=== PATIENT | female | born 1970 | race Caucasian/White ===

== ENCOUNTER 2022-06-01 21:53 | Emergency (ER) | payer BC, SELFPAY ==
[2022-06-01] MEDS: 0.9 % SODIUM CHLORIDE 500 ML 500 ML 2000 ML IV (22:05)
[2022-06-01] MEDS: 0.9 % SODIUM CHLORIDE 500 ML 500 ML IV (22:05)
[2022-06-01 22:07] VITALS: BP 123/84; PULSE 103; RESP 16; TEMP 36.6; O2SAT 99; BMI 23.8
[2022-06-01] MEDS: 0.9 % SODIUM CHLORIDE 1000 ml 1,000 ML IV (22:10)
--- NOTE | 2022-06-01 22:14 | ED.GENADULT ---
HPI - General Adult General Chief complaint: Nausea/Vomiting Stated complaint: diarrhea, nausea, fever Time Seen by Provider: 06/01/22 21:59 History of Present Illness HPI narrative: Patient is a 52-year-old woman who presents with 2 day history of nausea with extreme diarrhea. She has no abdominal pain no fevers no chills no night sweats no weakness no blood in her stool or vomitus. She has otherwise been feeling fine has not traveled anywhere recently. She has had no similar symptoms previously. Related Data Home Medications Medication Instructions Recorded Confirmed calcium carbonate 600 mg calcium mg PO BID 05/06/22 05/11/22 (1,500 mg) tablet fexofenadine 180 mg tablet 180 mg PO QDAY 05/06/22 06/01/22 hydrocodone 5 mg-acetaminophen 325 tab PO PRN 05/06/22 mg tablet multivitamin (Multiple Vitamins 1 tab PO QDAY 05/06/22 06/01/22 tablet) valacyclovir 1 gram tablet mg PO BID 05/06/22 05/11/22 Previous Rx's Medication Instructions Recorded dextroamphetamine-amphetamine ER 20 mg PO DAILY #30 caps 05/06/22 20 mg 24hr capsule,extend release duloxetine 60 mg capsule,delayed 60 mg PO DAILY #90 caps 05/06/22 release epinephrine 0.3 mg/0.3 mL 0.3 mg (0.3 mL) IM ONCE PRN 05/06/22 injection, auto-injector anaphylaxis #2 ea Allergies Allergy/AdvReac Type Severity Reaction Status Date / Time nickel Allergy Severe Hives Verified 05/11/22 09:07 tetracycline Allergy Severe severe Verified 05/11/22 09:07 hives Sulfa drugs Allergy Severe severe Uncoded 05/11/22 09:07 hives Review of Systems Status of ROS: Reports: 10 or more systems reviewed and unremarkable except as noted in History and below [facility] Medical History Allergic rhinitis Allergic to bees Anxiety (12/04/10) Attention deficit disorder (2019) Celiac disease (2012) Chronic sinusitis Depressive disorder (06/27/07) Lymphocytic colitis (2016) Osteopenia (2012) Pneumonia (12/04/10) Thoracic back pain Surgical History History of loop electrical excision procedure (LEEP) (2017) History of varicose vein stripping (2014) Family History Mother Celiac disease Depression Sister Celiac disease Father Depression [place] (myocardial infarction) 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 History 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: , 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 EYES: No scleral icterus. LYMPH: No supraclavicular or cervical lymphadenopathy. SKIN: Visible skin seen during exam normal or with benign process only. EXT: No dependent lower extremity pedal edema. HEART: Regular rate and rhythm with no murmurs, rubs, or gallops. LUNGS: Clear to auscultation bilaterally with no crackles or wheezes. ABD: Soft, non tender, non distended. PSYCH: Good eye contact, speech is not pressured. Const: Vital Signs, click to edit/add: Vital Signs - 24 hr 06/01/22 22:07 06/01/22 22:39 Temperature 97.9 F 97.9 F Pulse Rate [Right Pulse Oximeter] 103 H Respiratory Rate 16 Blood Pressure [Ri ght Upper Arm] 123/84 Pulse Oximetry 99 Oxygen Delivery Me thod Room Air Course Course Hospital Course: Normal saline 2 L given 4 mg Zofran given IV CBC basic metabolic panel pending. Reevaluation(s) Reevaluation #1: Patient now feeling better after 2 L of normal saline. She has a feeling much better with Zofran on board as well. Time: 23:00 Vital Signs Vital signs: Initial Vital Signs Temperature 97.9 F 06/01/22 22:07 Temperature Source Temporal Artery Scan 06/01/22 22:07 Pulse Rate 103 H 06/01/22 22:07 Respiratory Rate 16 06/01/22 22:07 Blood Pressure 123/84 06/01/22 22:07 Blood Pressure Mean 97 06/01/22 22:07 Blood Pressure Position Supine 06/01/22 22:07 Pulse Oximetry 99 06/01/22 22:07 Oxygen Delivery Method 06/01/22 22:07 Vital Signs Temperature 97.9 F 06/01/22 22:07 Pulse Rate 103 H 06/01/22 22:07 Respiratory Rate 16 06/01/22 22:07 Blood Pressure 123/84 06/01/22 22:07 Pulse Oximetry 99 06/01/22 22:07 Oxygen Delivery Method 06/01/22 22:07 Temperature 97.9 F 06/01/22 22:39 Pulse Rate 103 H 06/01/22 22:07 Respiratory Rate 16 06/01/22 22:07 Blood Pressure 123/84 06/01/22 22:07 Pulse Oximetry 99 06/01/22 22:07 Oxygen Delivery Method 06/01/22 22:07 Medical Decision Making Lab Data Labs: Lab Results 06/01/22 06/01/22 Range/Units 22:10 22:10 WBC 7.77 (4.50-11.00) K/uL RBC 4.33 (4.00-5.20) m/uL Hgb 13.6 (12.0-16.0) gm/dL Hct 41.5 (33.0-51.0) % MCV 96 (80-100) fL MCH 31 (26-34) pg MCHC 33 (32-36) gm/dL RDW Coeff of Pardeep 12.5 (11.5-15.5) % Plt Count 261 (140-440) K/uL Neut % (Auto) 77.0 H (42.0-72.0) % Lymph % (Auto) 10.2 L (20-44) % [place] % (Auto) 9.9 (0.0-11.0) % Eos % (Auto) 1.3 (0.0-7.0) % Baso % (Auto) 0.4 (0.0-3.0) % Neut # (Auto) 6.00 (1.7-7.0) K/uL Lymph # (Auto) 0.80 L (0.90-2.90) K/uL [place] # (Auto) 0.80 (0.00-0.90) K/UL Eos # (Auto) 0.10 (0.00-0.50) K/uL Baso # (Auto) 0.03 (0.00-0.30) K/uL Abs Immat Gran (auto) 0.09 (0.00-0.30) K/uL Sodium 135 (135-149) mmol/L Potassium 3.5 L (3.6-5.1) mmol/L Chloride 103 (96-114) mmol/L Carbon Dioxide 26 (20-32) mmol/L BUN 13 (7-30) mg/dL Creatinine 0.8 (0.5-1.5) mg/dL Estimated Creat Clear 79.09 Estimated GFR 88 ml/min Glucose 94 (60-115) mg/dL Calcium 8.4 (8.4-10.6) mg/dL Discharge Plan Discharge Clinical Impression: Gastroenteritis Patient Disposition: Home, Self-Care Condition: Stable Instructions: Gastroenteritis (ED) Activity Level: No Restrictions Discharge Diet: Regular Prescriptions: No Action fexofenadine 180 mg tablet 180 mg PO QDAY multivitamin [Multiple Vitamins] Tablet 1 tab PO QDAY valacyclovir 1 gram tablet PO BID Rx Instructions: Take at onset on cold sore flare, 2 tabs po now and again 12 hrs later. calcium carbonate 600 mg calcium (1,500 mg) tablet PO BID hydrocodone-acetaminophen 5-325 mg tablet PO PRN Rx Instructions: minimize and discontinue as soon as possible duloxetine 60 mg capsule,delayed release(DR/EC) 60 mg PO DAILY Qty: 90 0RF dextroamphetamine-amphetamine 20 mg capsule,extended release 24hr 20 mg PO DAILY Qty: 30 0RF epinephrine 0.3 mg/0.3 mL auto-injector 0.3 mg IM ONCE PRN (Reason: anaphylaxis) Qty: 2 0RF Follow Up/Referrals: Jerri Moss MD [Primary Care Provider] - Stand Alone Forms: [employer] Info Instructions
[2022-06-01] MEDS: ONDANSETRON 2 MG/ML inj 4 MG IVP (22:16)
[2022-06-01 22:38] LABS: Basophils Absolute Auto 0.03 K/uL (0.00-0.30); Basophils Percent Auto 0.4 % (0.0-3.0); Eosinophils Percent Auto 1.3 % (0.0-7.0); Hematocrit 41.5 % (33.0-51.0); Hemoglobin* 13.6 gm/dL (12.0-16.0); Immature Granulocytes Abs Auto 0.09 K/uL (0.00-0.30); Lymphocytes Percent Auto 10.2 % (20-44); Mean Corpuscular HGB Conc 33 gm/dL (32-36); Mean Corpuscular Hemoglobin 31 pg (26-34); Mean Corpuscular Volume 96 fL (80-100); Monocytes Percent Auto 9.9 % (0.0-11.0); Platelet Count* 261 K/uL (140-440); RDW Coefficient of Variation % 12.5 % (11.5-15.5); Red Blood Count 4.33 m/uL (4.00-5.20); White Blood Count* 7.77 K/uL (4.50-11.00)
[2022-06-01 22:39] VITALS: TEMP 36.6
[2022-06-01 22:39] LABS: Chloride* 103 mmol/L (96-114); Sodium* 135 mmol/L (135-149)
[2022-06-01] MEDS: ACETAMINOPHEN 500 MG TABLET 1000 MG PO (22:39)
[2022-06-01 22:40] LABS: Potassium* 3.5 mmol/L (3.6-5.1)
[2022-06-01 22:42] LABS: Carbon Dioxide* 26 mmol/L (20-32); Creatinine* 0.8 mg/dL (0.5-1.5); Est. Creatinine Clearance* 79.09; Estimated Glomerular Filt Rate 88 ml/min
[2022-06-01 22:43] LABS: Blood Urea Nitrogen* 13 mg/dL (7-30); Calcium* 8.4 mg/dL (8.4-10.6); Glucose* 94 mg/dL (60-115)
[2022-06-01 22:47] LABS: Slide Review Reflex No
[2022-06-01 23:12] VITALS: BP 118/71; PULSE 61; RESP 16; TEMP 36.7
== END 2022-06-01 23:12 | disposition home or self-care (01) ==
PROVIDERS: Emergency Provider Internal Medicine; PCP Family Medicine
DX: K52.9 Noninfective gastroenteritis and colitis, unspecified (principal)
CPT/HCPCS: 36415; 80048; 85025; 96374; 99283; 99284; A9270; J2405; J7030; J7120

== ENCOUNTER 2022-06-26 10:45 | Outpatient (RCR) | payer BC, SELFPAY | END 2022-09-25 15:28 | disposition home or self-care (01) | PROVIDERS: PCP Family Medicine; Visit Provider Orthopaedic Surgery | DX: M25.571 Pain in right ankle and joints of right foot (principal); R26.9 Unspecified abnormalities of gait and mobility; Z51.89 Encounter for other specified aftercare | CPT/HCPCS: 97110; 97116; 97140 ==

== ENCOUNTER 2022-12-22 13:13 | Outpatient (CLI) | payer BC, SELFPAY ==
[2022-12-25 16:17] LABS: Follicle Stimulating Hormone 14.7 IU/L
== END 2022-12-22 13:14 | disposition home or self-care (01) ==
PROVIDERS: PCP Family Medicine; Visit Provider Physician Assistant
DX: Z01.419 Encounter for gynecological examination (general) (routine) without abnormal findings (principal); N95.1 Menopausal and female climacteric states
CPT/HCPCS: 83001; 84443

== ENCOUNTER 2022-12-29 15:51 | Outpatient (CLI) | payer BC, SELFPAY ==
--- NOTE | 2022-12-29 16:00 | CRLHL7_ITS ---
For Patients: As a result of the Century Cures Act, medical imaging exams and procedure reports are released immediately into your electronic medical record. You may view this report before your referring provider. If you have questions, please contact your health care provider. INDICATION: Dysfunctional uterine bleeding. Uterine fibroids. Follow-up. TECHNIQUE: Grayscale images were acquired of the pelvis using a transabdominal and transvaginal approach. COMPARISON: January 07, 2021. FINDINGS: Sonographic images demonstrate an enlarged and lobulated uterine contour compatible with diffuse and more focal fibroids. The uterus measures 9.7 x 4.5 x 4.3 cm previously measuring up to 8.5 cm. For measurement purposes: Large exophytic fibroid arises from the uterine fundus measuring 12.5 x 7.6 x 6.1 cm previously 6.5 x 5.0 x 7.4 cm. Smaller left lateral sub serosal uterine fibroid measuring 3.5 x 2.6 x 2.4 cm previously measuring 1.2 x 1.2 x 1.3 cm. There is an intrauterine device which appears to be within the endometrial canal. The endometrial stripe is poorly visualized. The right ovary measures 2.7 x 1.5 x 1.9 cm. The left ovary measures 2.2 x 1.3 x 2 cm. Blood flow is identified in the ovaries. Doppler evaluation was not performed. No free pelvic fluid. IMPRESSION: 1. Enlarged myomatous uterus with at least 2 enlarging uterine fibroids as described above. 2. IUD appears to be within the endometrial canal. Poor visualization of the endometrial lining. 3. The ovaries are within normal limits. Dictated by Tripp Agosto MD @ 12/29/2022 6:20:05 PM (Electronically Signed)
== END 2022-12-29 15:52 | disposition home or self-care (01) ==
LOC: US 15:52
PROVIDERS: PCP Family Medicine; Visit Provider Physician Assistant
DX: N92.1 Excessive and frequent menstruation with irregular cycle (principal); D25.9 Leiomyoma of uterus, unspecified; N85.2 Hypertrophy of uterus
CPT/HCPCS: 76830; 76856

== ENCOUNTER 2023-05-26 08:10 | Outpatient (CLI) | payer BC, SELFPAY ==
--- OUTSIDE RECORDS SUMMARY | 2023-05-26 13:19 | XMS_ITS | Continuity of Care Document ---
Author Name Unknown Organization [facility] Address [address] [place] [address] Phone Care Team Providers Care Parking Enforcement Specialist Name Role Phone Stepan Mckeon MD Unavailable Unavailable Allergies, Adverse Reactions, Alerts Substance Reaction Status Criticality tetracycline hives Active No Information Sulfa (Sulfonamide Antibiotics) hives Active No Information nickel rash Active No Information Medications Medication Instructions Dosage Effective Dates (start - stop) Status Comments TIZANIDINE HCL (unknown strength) Not Available - Active CYMBALTA (unknown strength) Not Available - Active VALTREX (unknown strength) Not Available - Active Procedures Procedure Date Office/Outpatient Visit,Est, Mod 2020 Office/Outpatient Visit,New, Mod 2020 X Ray Exam Entire SPI / VW Office consultation, moderate X-ray exam of total spine Advance Directives Directive Yes / No Effective Date File Name No Information Encounters Encounter Description Practice Location Reason(s) For Visit Diagnoses Date Provider Providers Copied on Encounter Office/Outpa tient Visit,Est, Mod [facility], [address], [place], [place], [id number], [place] tel:[phone] [facility] Other spondylosis, thoracic region Linda Ying. [facility], [address], [address], [place], [place], [id number], [place]. tel:[phone] Referring Provider: Yakov King, [facility] [address], [place], [address] . tel:[phone] Office/Outpa tient Visit,New, Mod [facility], [address], [place], [place], [id number], [place] tel:[phone] [facility] Other kyphosis, thoracic regionAdolescen t idiopathic scoliosis, site unspecified Christine Nagy. [facility], [address], [place], [place], [id number], [place]. tel:[phone] Referring Provider: Yakov King, [facility] [address] [place] [address] [address], [place], [address] . tel:[phone] Office consultation , moderate Z [facility], [address], [place], [address], [place] tel:[phone] [facility] No Information No Information Referring Provider: Romy Gordillo, [facility] [address] [place], [place]. tel:[phone] Family History Family Member Type Diagnosis Age At Onset No Information Payers Payer name Insurance type Covered constitution party ID Orville gerber(alfredito) [facility] [id number] [facility] [id number] Social History Type Description Quantity Date Captured Comments Alcohol Use Details Unknown Caffeine Use Details Unknown Tobacco Use Status No Information Smoking Status No Information Sex Female Vital Signs Date / Time: Height Weight BMI Pulse Rate Blood Pressure Temperature Respiratory Rate Body Surface Area Head Circumference Head Circ. Percentile Wt./Emmett. Percentile BMI percentile Pulse Ox Inhaled Ox 3:02 PM 66.50 in 73.936 kg (163.00 lbs) 25.9 1 kg/m eter (2) Chief Complaint And Reason For Visit No Information Reason For Referral Reason For Referral No Information Plan Of Treatment Date Type Action Status Future Order: Radiology Order PA /Lateral Full Spine (PALatFS), Ordered on: Ordered Future Order: Radiology Order F/ E Lumbar (F/ELumb), Ordered on: Ordered History Of Present Illness Encounter Date Complaint History Of Prese nt Illness No Information Functional Status Date Functional Assessmen t No Information Instructions Date Instruction Additional Infor mation No Information Assessments Type Assessment Date No Information Patient Care Teams Name Effective Dates (start - stop) Status Members No Information
== END 2023-05-26 08:11 | disposition home or self-care (01) ==
LOC: NFLDREF 13:16
PROVIDERS: PCP Family Medicine; Referring Provider Family Medicine; Visit Provider Family Medicine
DX: Z01.419 Encounter for gynecological examination (general) (routine) without abnormal findings (principal); E78.5 Hyperlipidemia, unspecified; M85.80 Other specified disorders of bone density and structure, unspecified site; K90.0 Celiac disease
CPT/HCPCS: 80053; 80061; 82306

== ENCOUNTER 2024-06-05 13:12 | Outpatient (CLI) | payer BC, SELFPAY ==
--- OUTSIDE RECORDS SUMMARY | 2024-06-05 13:17 | XMS_ITS | Referral Summary ---
Author Organization [facility] Address [address] [place] [address]. [place] [address] Care Team Providers Care Biomedical Analytical Scientist Name Role Phone Xenia Clements PA-C Primary Care Provider [phone] Jerri Moss MD Unavailable Allergies Active Allergy Reactions Criticality Noted Date Comments Sulfa Antibiotics 02/29/2004 Tetracycline 02/29/2004 Medications Medication Sig Dispensed Refills Start Date End Date Status MULTIVITAMIN TABS OR 1 tab daily 0 06/09/2005 Act nash VICODIN 5-500 MG OR TABSIndications:Back ache, unspecified 1 TABLET EVERY 4 TO 6 HOURS NEEDED 20 0 07/03/2005 Active ALBUTEROL SULFATE 0.083 % IN NEBUIndications:Acut e pharyngitis given in clinic 1 0 10/06/2005 Active NYSTATIN (MOUTH-THROAT) SUSP 806849 U/ML MTIndications:Candid iasis of vulva and vagina 1 TEASPOONFUL 4 TIMES DAILY garle and spit 280 0 10/06/2005 Active LEVAQUIN 500 MG OR TABSIndications:Coug h 1 TABLET DAILY 10 0 10/06/2005 Active XANAX 0.25 MG OR TABS 1 tab po qhs prn 10 0 10/06/2005 Active ZOLOFT 100 MG OR TABSIndications:Depr essive disorder, not elsewhere classified ONE AND ONE HALF TAB DAILY 45 3 03/14/2007 Active fluticasone (FLONASE) 50 MCG/ACT nasal spray 10 01/18/2019 Active EPINEPHrine (EPIPEN/ADRENACLICK/ OR ANY BX GENERIC EQUIV) 0.3 MG/0.3ML injection 2-pack Once 12/20/2018 Active DULoxetine (CYMBALTA) 60 MG capsule Take 60 mg by mouth daily Active Immunizations Name Administration Dates Next Due Influenza (IIV3) PF 10/04/2003 Social History Tobacco Use Types Packs/Day Years Used Date Smoking Tobacco: Never Smokeless Tobacco: Never Alcohol Use Standard Drinks/Week Comments Yes 0 (1 standard drink = 0.6 oz pur e alcohol) PHQ-2 Answer Date Recorded PHQ-2 Score 4 01/19/2019 Adolescent Education Answer Date Record ed Getting School Help Needed Not on file 08/17 Sex and Gender Information Value Date Recorded Sex Assigned at Not on file Gender Identity Not on file Sexual Orientation Not on file Last Filed Vital Signs Vital Sign Reading Time Taken Comments Blood Pressure 119/80 06/29/2019 4:18 PM CDT Pulse 94 06/29/2019 4:18 PM CDT Temperature 36.4 ??C (97.5 ??F) 01/19/2019 12:22 PM C DT Respiratory Rate 16 06/29/2019 4:18 PM CDT Oxygen Saturation 96% 06/29/2019 4:18 PM CDT Inhaled Oxygen Concentration - - Weight 70.3 kg (155 lb) 01/19/2019 12:22 PM CDT Height 171.8 cm (5' 7.64) 01/19/2019 12:22 PM C DT Body Mass Index 23.82 01/19/2019 12:22 PM CDT Plan of Treatment Not on file Advance Directives For more information, please contact: [phone] * No Code Status (Latest Code Status on File) Date Activated Date Inactivated Comments 10/04/2003 9:28 AM 10/04/2003 10:28 AM Care Teams Biomedical Analytical Scientist Relationship Specialty Start Date End Date Xenia Clements PA-C [facility] [address] [address] PCP - General 05/13/[address] [facility] [address] [place] [address] Family Practice 12/20/18
--- OUTSIDE RECORDS SUMMARY | 2024-06-05 13:17 | XMS_ITS | Clinical Summary ---
Author Organization [facility] Address [address] [place] [address] Care Team Providers Care Can Capper Name Role Phone Unassigned, Provider Primary Care Provider Unava ilable Source Comments You are receiving this document as you are listed as the primary care provider,follow-up provider, or the patient has been referred to you for consultation.This is in compliance with the Medicare andMedicaid EHR Incentive Program,which states Providers who transition their patient to another setting of careor provider of care or refers their patient to another provider of care shouldprovide summary care record for each transition of care or referral. [facility] All[facility] Active Allergy Reactions Criticality Noted Date Comments Sulfonamide Derivatives 11/15/2001 Tetracyclines & Related 11/15/2001 Medications Medication Sig Dispensed Refills Start Date End Date Status amphetamine-dextroamph etamine XR (ADDERALL XR) 20 MG 24 hour release capsule Take 20 mg by mouth daily. 03/03/2022 Active DULoxetine (CYMBALTA) 60 MG capsule Take 120 mg by mouth daily. 02/24/2022 Active HYDROcodone-acetaminop hen (NORCO) 5-325 MG tabletIndications:Clos ed nondisplaced spiral fracture of shaft of right fibula with routine healing, subsequent encounter,Acute right ankle pain Take 1-2 Tablets by mouth two times daily as needed for Pain. 15 Tablet 03/21/2022 Active Immunizations Name Administration Dates Next Due Flu Vac (3+ yrs) 09/01/2001 Varicella 09/19/2001(Deferred: Immune by Marta butt) Social History Tobacco Use Types Packs/Day Years Used Date Smoking Tobacco: Never Assessed Sex and Gender Information Value Date Recorded Sex Assigned at Not on file Gender Identity Not on file Sexual Orientation Not on file Last Filed Vital Signs Vital Sign Reading Time Taken Comments Blood Pressure - - Pulse - - Temperature 36.7 ??C (98 ??F) 03/21/2022 3:20 PM CDT Respiratory Rate - - Oxygen Saturation - - Inhaled Oxygen Concentration - - Weight 70.3 kg (155 lb) 03/15/2022 2:38 PM CDT Height 170.2 cm (5' 7) 03/15/2022 2:38 PM CDT Body Mass Index 24.28 03/15/2022 2:38 PM CDT Plan of Treatment Health Maintenance Due Date Last Done Comments Colon Cancer Screening Plan Due 1969 Hep C Screening (Preventive Services) 1969 Mammogram 1969 HIV Screening (Preventive Services) 1985 HepB (1) 1988 Cervical Cancer Screening Due 09/02/2001 09/01/2001, 09/01/2001 Adult Preventive Visit 09/01/2002 09/01/2001 Cholesterol 2014 09/01/2001 Zoster/Shingles (1 of 2) 2019 COVID-19 Vaccine ( season) 2023 09/22/2021, 01/30/2021, 01/02/2021 Influenza (#1) 2024 10/13/2021, 01/31, 08/10/2018, Additional history exists DTaP/Tdap/Td (2 - Tdap) 05/03/2027 05/03/2017 Pneumococcal Aged Out 10/13/2021, 02/14/2020 No lo nger eligible based on patient's age to complete this topic HepA Aged Out No longer eligi ble based on patient's age to complete this topic Hib Aged Out No longer eligi ble based on patient's age to complete this topic IPV (Polio) Aged Out No longer eligi ble based on patient's age to complete this topic MCV4 Aged Out No longer eligi ble based on patient's age to complete this topic Procedures Procedure Name Priority Date/Time Associated Diagnosis Comments CHOLESTEROL, TOTAL AND HDL Routine 09/01/2001 1:25 PM UTILITY DRIVER PAP TEST, ROUTINE Routine 09/01/2001 10: 10 AM UTILITY DRIVER from Last 3 Months or Most Recently Relevant to Health Maintenance Results * CHOLESTEROL, TOTAL AND HDL (09/01/2001 1:25 PM UTILITY DRIVER) Cholesterol 148 <200 mg/dl [facility] HDL 58 >35 mg/dl [facility] 09/01/2001 1:25 PM UTILITY DRIVER 09/01/2001 1:26 PM UTILITY DRIVER Rosa Harrison MD LAB_1 Performing Organization Address [facility] de Phone Number [facility] [address] [phone] * PAP SMEAR, ROUTINE (09/01/2001 10:10 AM UTILITY DRIVER) Pap Smear, Routine See Separate Report Performed at [facility] 09/01/2001 10:1 0 AM UTILITY DRIVER 09/07/2001 10:53 AM UTILITY DRIVER Rosa Harrison MD LAB_1 Performing Organization Address [facility] de Phone Number [facility] [address] [phone] from Last 3 Months or Most Recently Relevant to Health Maintenance Care Teams Can Capper Relationship Specialty Start Date End Date Unassigned, Provider [address] [place] [address] PCP - General 08/22/04
--- OUTSIDE RECORDS SUMMARY | 2024-06-05 13:17 | XMS_ITS | Encounter Summary ---
Author Organization [facility] Address [address] [place] [address]. [place] [address] Care Team Providers Care [employer] Principal Name Role Phone Xenia Clements PA-C Primary Care Provider [phone] Jerri Moss MD Unavailable [phone] Alcon Gallegos MD Unavailable [phone] Reason for Visit * Reason Onset Date Comments Orders 06/12/2019 MRI order Encounter Details Date Type Department Care Team ([facility] st Contact Info) Description 06/12/[address] [place] [address] Fely Luque MD [id number] [place] [address] Orders (MRI order) Social History Tobacco Use Types Packs/Day Years Used Date Smoking Tobacco: Never Smokeless Tobacco: Never Alcohol Use Standard Drinks/Week Comments Yes 0 (1 standard drink = 0.6 oz pur e alcohol) PHQ-2 Answer Date Recorded PHQ-2 Score 4 01/19/2019 Sex and Gender Information Value Date Recorded Sex Assigned at Not on file Gender Identity Not on file Sexual Orientation Not on file documented as of this encounter Miscellaneous Notes * Telephone Encounter - Caren Joshua - 06/12/2019 4:05 PM CDT [facility] MRI order faxed to [facility] at [phone] Karen Collins CMA Phone Message May a detailed message be left on voicemail: yes Reason for Call: Other: Susy calling to request that the MRI order be sent to [facility] in [place] as we are not in network per her insurance. Their fax number is [phone]. Please call her once the order has been faxed so she can schedule her appointment Action Taken: Message routed to: [facility] Neurology documented in this encounter Plan of Treatment Not on file documented as of this encounter Visit Diagnoses Not on filedocumented in this encounter Additional Health Concerns Assessment Noted Time PHQ-9 Depression Total Score: 6 06/05/20 24 7:55 AM CDT documented as of this encounter Care Teams [employer] Principal Relationship Specialty Start Date End Date Xenia Clements PA-C [facility] [address] [address] PCP - General 05/13/02 Jerri Moss MD [facility] [address] [place] [address] Family Practice 12/20/18 Alcon Gallegos MD [address] [place] [address] [address] [place] [address] Neurology 12/20/18 02/21/20 documented as of this encounter
--- OUTSIDE RECORDS SUMMARY | 2024-06-05 13:17 | XMS_ITS | Clinical Summary ---
Author Organization [facility] Address [place], [place] [address] Care Team Providers Care Motor Vehicle Inspector Name Role Phone None, Primary Care Provider Unavailemmett e Allergies Active Allergy Reactions Criticality Noted Date Comments Nickel Rash 03/29/2019 Sulfa (Sulfonamide Antibiotics) Hives 02/01 Tetracycline Hives 02/16/2007 Medications Medication Sig Dispensed Refills Start Date End Date Status DULoxetine (CYMBALTA) 60 mg Delayed-release capsule Take 1 capsule by mouth 2 times daily. 0 02/19/2018 Active valACYclovir (VALTREX) 1 gram tablet Take 1 tablet by mouth 3 times daily. 0 02/19/2018 Active Adderall XR 20 mg Extended-Release capsule TAKE ONE CAPSULE BY MOUTH EVERY DAY NEEDED 05/07/2021 Active EPINEPHrine (EPIPEN) 0.3 mg/0.3 mL injection INJECT 0.3 MG INTRAMUSCULARLY ONCE 01/21/2021 Active fluticasone (50 mcg per actuation) nasal solution (FLONASE) INSTILL 2 SPRAYS INTO EACH NOSTRIL DAILY 01/21/2021 Active ondansetron (ZOFRAN ODT) 4 mg disintegrating tablet 06/01/2022 Active tiZANidine (ZANAFLEX) 4 mg tabletIndications:A rthropathy of thoracic facet joint Take 1 Tablet (4 mg) by mouth every 6 hours if needed for Muscle Spasm. 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 Family History Medical History Relation Name Comments Heart Disease Father Other Father scoliosis No Known Problems Mother Relation Name Status Comments Father Mother Alive Social History Tobacco Use Types Packs/Day Years Used Date Smoking Tobacco: Never Smokeless Tobacco: Never Tobacco Cessation:Counseling Given: Yes Alcohol Use Standard Drinks/Week Comments Yes 2 (1 standard drink = 0.6 oz pur e alcohol) Social Connections Answer Date Recorded Frequency of Communication with Friends and Fami ly Not on file 10/22/2021 Financial Resource Strain Answer Date R ecorded Difficulty of Paying Living Expenses Not on file 10/22/2021 Difficulty of Paying Living Expenses Not on file 10/22/2021 Sex and Gender Information Value Date Recorded Sex Assigned at Not on file Gender Identity Not on file Sexual Orientation Not on file Obstetrics History Last Filed Vital Signs Vital Sign Reading Time Taken Comments Blood Pressure 112/78 01/10/2024 7:47 AM CDT Pulse 90 01/10/2024 7:47 AM CDT Temperature 36.3 ??C (97.4 ??F) 01/10/2024 7:47 AM CD T Respiratory Rate - - Oxygen Saturation 97% 01/10/2024 7:47 AM CDT Inhaled Oxygen Concentration - - Weight 68.7 kg (151 lb 6.4 oz) 06/29/2022 9:14 A M CDT Height 170.2 cm (5' 7) 10/21/2021 2:17 PM BURR BENCH HAND Body Mass Index 23.71 10/21/2021 2:17 PM BURR BENCH HAND Plan of Treatment Health Maintenance Due Date Last Done Comments Tdap 1980 Depression screening for age 12+ 1981 HIV for age 15-65 1984 Hepatitis C screening for age 18-79 1987 Tetanus booster 1989 Colonoscopy through age 75 2014 Lipids for age 45-75 2014 Mammogram for age 45-75 2014 Zoster (shingles) series for age 50+ (1 of 2) 2019 BMI (ht and wt on same day) for age 18+ 10/21/2022 10/21/2021, 09/08/2021, 08/29/2021, Additional history exists COVID-19 vaccine series (2022- season) 2023 07/23/2022, 09/22/2021, 01/30/2021, Additional history exists Influenza for age 50-64 07/02/2024 Pap test for age 21-65 12/22/2025 3, 12/22/2022, 12/06/2020, Additional history exists Pneumococcal series for age 6-64 Aged Out No longer eligible based on patient's age to complete this topic Procedures Procedure Name Priority Date/Time Associated Diagnosis Comments HPV THIN PREP Routine 12/22/2022 12:00 PM BURR BENCH HAND from Last 3 Months or Most Recently Relevant to Health Maintenance Results * HPV HIGH RISK (12/22/2022 12:00 PM B[facility]R BENCH HAND) TYPE 16 Negative Negative 12/30/2022 11:02 AM B[facility]R BEN[facility] HAND [facility] TYPE 18 Negative Negative 12/30/2022 11:02 AM B[facility]R BENCH HAND [facility] OTHER HIGH RISK TYPES Negative Negative 12/30/2022 11:02 AM BURR BENCH HAND [facility] Other (Cervical) 12/22/2022 12:00 PM B[facility]R BENCH HAND 12/23/2022 5:20 PM B[facility]R BENCH HAND Narrative [facility] - 12/30/2022 11:02 AM B[facility]R [facility] HPV types 16, 18, 31, 33, 35, 39, 45, 51, 52, 56, 58, 59, 66 and 68 DNA were undetectable or below the pre-set threshold. Methodology: Hue Gilbert 4800 HPV Test January Eugenia PACHECO MICROBI[employer] [facility] [address] [place] [address], from Last 3 Months or Most Recently Relevant to Health Maintenance Care Teams Motor Vehicle Inspector Relationship Specialty Start Date End Date None, Dr Quezada PCP - General 10/26/06
--- OUTSIDE RECORDS SUMMARY | 2024-06-05 13:17 | XMS_ITS | Clinical Summary ---
Author Organization [place] Address [address] [place] [address]. [place] [address] Care Team Providers Care Supplier Quality Specialist Name Role Phone Xenia Clements PA-C Primary Care Provider [phone]- [phone] Jerri Moss MD Unavailable [phone] Allergies Active Allergy Reactions Criticality Noted Date [...] 1 0 10/06/2005 Active NYSTATIN (MOUTH-THROAT) SUSP 316215 U/ML MTIndications:Candid iasis of vulva and vagina [...] Dates Next Due Influenza (IIV3) PF 10/04/2003 Family History Medical History Relation Comments Alcohol/Drug Father Depression Father Psychotic Disorder Father Arthritis Mother Osteoporosis Mother Alcohol/Drug Paternal Grandfather Alzheimer Disease Paternal Grandmother Depression Paternal Grandmother Diabetes Paternal Grandmother Hypertension Paternal Grandmother Relation Status Comments Father Mother Paternal Grandfather Paternal Grandmother Social History Tobacco Use Types Packs/Day Years [...] Advance Directives For more information, please contact: [phone] * No Code Status (Latest Code Status on File) Date Activated Date Inactivated Comments 10/04/2003 9:28 AM 10/04/2003 10:28 AM Care Teams Supplier Quality Specialist Relationship Specialty Start Date End Date Xenia Clements PA-C [facility] [address] [address] PCP - General 05/13/[address] [facility] [address] [place] [address] Family Practice 12/20/18
--- OUTSIDE RECORDS SUMMARY | 2024-06-05 13:17 | XMS_ITS | Encounter Summary ---
Author Organization [place] Address [address] [place] [address]. [place] [address] Care Team Providers Care Surgeon Assistant Name Role Phone Xenia Clements PA-C Primary Care Provider [phone]- [phone] Jerri Moss MD Unavailable [phone] Alcon Gallegos MD Unavailable [phone] Encounter Details Date Type Department Care Team (Late st Contact Info) Description 06/17/2019 [facility] Medical Advice [facility] Neurology [address] [place] [address] [address] [place] [address] Fely Luque MD [id number] [place] [address] Social History Tobacco Use Types Packs/Day Years [...] on file documented as of this encounter Plan of Treatment Not on file documented as of this encounter Visit Diagnoses Not on filedocumented in this encounter Additional Health Concerns Assessment Noted Time PHQ-9 Depression Total Score: 6 06/05/20 24 7:55 AM CDT documented as of this encounter Care Teams Surgeon Assistant Relationship Specialty Start Date End Date Xenia Clements PA-C [facility] [address] [facility] [address] [place] [address] PCP - General 05/13/02 Jerri Moss MD [facility] [address] [place] [address] Family Practice 12/20/18 Alcon Gallegos MD [address] [place] [address] [address] [place], [place] [address] Neurology 12/20/18 02/21/20 documented as of this encounter
== END 2024-06-05 13:13 | disposition home or self-care (01) ==
LOC: LKVREF 13:14
PROVIDERS: PCP Family Medicine; Visit Provider Physician Assistant
DX: N93.9 Abnormal uterine and vaginal bleeding, unspecified (principal); Z79.890 Hormone replacement therapy
CPT/HCPCS: 83001

== ENCOUNTER 2024-06-07 15:51 | Outpatient (CLI) | payer BC, SELFPAY ==
--- OUTSIDE RECORDS SUMMARY | 2024-06-07 15:54 | XMS_ITS | Clinical Summary ---
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 Encounters Date Type Department Care Team Description 06/06/2024 Lab Requisition [facility] [phone] Martha Bello PA-C 06/06/2024 Lab Requisition [facility] [phone] Martha Bello PA-C from Last 3 Months Family History Medical History Relation Name Comments [...] 170.2 cm (5' 7) 10/21/2021 2:17 PM MANAGER GAMING Body Mass Index 23.71 10/21/2021 2:17 PM MANAGER GAMING Plan of Treatment Health Maintenance Due Date [...] 08/29/2021, Additional history exists COVID-19 vaccine series (2022-24 season) 2023 07/23/2022, 09/22/2021, 01/30/2021, Additional history exists Influenza for age 50-64 07/02/2024 Pap test for age 21-65 12/22/2025 3, 12/22/2022, 12/06/2020, Additional history exists Pneumococcal series for age 6-64 Aged Out No longer eligible based on patient's age to complete this topic Procedures Procedure Name Priority Date/Time Associated Diagnosis Comments HPV THIN PREP Routine 12/22/2022 12:00 PM MANAGER GAMING from Last 3 Months or Most Recently Relevant to Health Maintenance Results * HPV HIGH RISK (12/22/2022 12:00 PM MANAGER GAMING) TYPE 16 Negative Negative 12/30/2022 11:02 AM MANAGER GAMING [facility] TYPE 18 Negative Negative 12/30/2022 11:02 AM MANAGER GAMING [facility] OTHER HIGH RISK TYPES Negative Negative 12/30/2022 11:02 AM MANAGER GAMING [facility] Other (Cervical) 12/22/2022 12:00 PM MANAGER GAMING 12/23/2022 5:20 PM MANAGER GAMING Narrative [facility] - 12/30/2022 11:02 AM MANAGER GAMING HPV types 16, 18, 31, 33, 35, 39, 45, 51, 52, 56, 58, 59, 66 and 68 DNA were undetectable or below the pre-set threshold. Methodology: Hue Gilbert 4800 HPV Test January Eugenia [facility] [address] [place] [address], [place] from Last 3 Months or Most Recently Relevant to Health Maintenance Care Teams Advertising Clerk Relationship Specialty Start Date End Date None, Dr Quezada PCP - General 10/26/06
--- OUTSIDE RECORDS SUMMARY | 2024-06-07 15:55 | XMS_ITS | Clinical Summary ---
Author Organization [place] Address [address] [place] [address]. [place] [address] Care Team Providers Care Associate Professor Of Library Media Name Role Phone Xenia Clements PA-C Primary Care Provider [phone]- [phone] Jerri Moss MD Unavailable [phone] Allergies Active Allergy Reactions Criticality Noted Date [...] 1 0 10/06/2005 Active NYSTATIN (MOUTH-THROAT) SUSP 891328 U/ML MTIndications:Candid iasis of vulva and vagina [...] Advance Directives For more information, please contact: [phone] * No Code Status (Latest Code Status on File) Date Activated Date Inactivated Comments 10/04/2003 9:28 AM 10/04/2003 10:28 AM Care Teams Associate Professor Of Library Media Relationship Specialty Start Date End Date Xenia Clements PA-C [facility] [address] [address] PCP - General 05/13/02 Jerri Moss MD [facility] [address] [place] [address] Family Practice 12/20/18
--- OUTSIDE RECORDS SUMMARY | 2024-06-07 15:55 | XMS_ITS | Encounter Summary ---
Author Organization [place] Address [address] [place] [address]. [place] [address] Care Team Providers Care Refuse Collector Supervisor Name Role Phone Xenia Clements PA-C Primary Care Provider [phone]- [phone] Jerri Moss MD Unavailable [phone] Alcon Gallegos MD Unavailable [phone] Reason for Visit * Reason Onset Date Comments Orders 06/12/2019 MRI order Encounter Details Date Type Department Care Team ([facility] st Contact Info) Description 06/12/[address] [place] [address] Fely Luque MD [id number] [place] [address] Orders (MRI order) Social History [...] Caren Joshua - 06/12/2019 4:05 PM CDT [facility] MRI order faxed to [facility] at [phone] Karen Collins CMA Phone Message May a detailed message be left on voicemail: yes Reason for Call: Other: Susy calling to request that the MRI order be sent to [facility] in [place] as we are not in network per her insurance. Their fax number is [phone]. Please call her once the order has been faxed so she can schedule her appointment Action Taken: Message routed to: [facility] Neurology documented in this encounter Plan of Treatment Not on file documented as of this encounter Visit Diagnoses Not on filedocumented in this encounter Additional Health Concerns Assessment Noted Time PHQ-9 Depression Total Score: 6 06/07/20 24 7:51 AM CDT documented as of this encounter Care Teams Refuse Collector Supervisor Relationship Specialty Start Date End Date Xenia Clements PA-C [facility] [address] [address] PCP - General 05/13/02 Jerri Moss MD [facility] [address] [place] [address] Family Practice 12/20/18 Alcon Gallegos MD [address] [place] [address] [address] [place] [address] Neurology 12/20/18 02/21/20 documented as of this encounter
--- OUTSIDE RECORDS SUMMARY | 2024-06-07 15:55 | XMS_ITS | Referral Summary ---
Author Organization [place] Address [address] [place] [address]. [place] [address] Care Team Providers Care Rn Gyn Name Role Phone Xenia Clements PA-C Primary Care Provider [phone]- [phone] Jerri Moss MD Unavailable [phone] Allergies Active Allergy Reactions Criticality Noted Date [...] 1 0 10/06/2005 Active NYSTATIN (MOUTH-THROAT) SUSP 068141 U/ML MTIndications:Candid iasis of vulva and vagina [...] Advance Directives For more information, please contact: [phone] * No Code Status (Latest Code Status on File) Date Activated Date Inactivated Comments 10/04/2003 9:28 AM 10/04/2003 10:28 AM Care Teams Rn Gyn Relationship Specialty Start Date End Date eXnia Clements PA-C [facility] [address] [address] PCP - General 05/13/02 Jerri Moss MD [facility] [address] [place] [address] Family Practice 12/20/18
--- OUTSIDE RECORDS SUMMARY | 2024-06-07 15:55 | XMS_ITS | Clinical Summary ---
Author Organization [facility] Address [address] [place] [address] Care Team Providers Care Automation Engineer Name Role Phone Unassigned, Provider Primary Care [...] for each transition of care or referral. [facility] Allergies Active Allergy Reactions Criticality Noted Date [...] TOTAL AND HDL Routine 09/01/2001 1:25 PM OUTSIDE SALESMAN PAP TEST, ROUTINE Routine 09/01/2001 10: 10 AM OUTSIDE SALESMAN from Last 3 Months or Most Recently Relevant to Health Maintenance Results * CHOLESTEROL, TOTAL AND HDL (09/01/2001 1:25 PM OUTSIDE SALESMAN) Cholesterol 148 <200 mg/dl [facility] HDL 58 >35 mg/dl [facility] 09/01/2001 1:25 PM OUTSIDE SALESMAN 09/01/2001 1:26 PM OUTSIDE SALESMAN Rosa Harrison MD LAB_1 Performing Organization Address [facility] de Phone Number [facility] [address] [phone] * PAP SMEAR, ROUTINE (09/01/2001 10:10 AM OUTSIDE SALESMAN) Pap Smear, Routine See Separate Report Performed at [facility] 09/01/2001 10:1 0 AM OUTSIDE SALESMAN 09/07/2001 10:53 AM OUTSIDE SALESMAN Rosa Harrison MD LAB_1 Performing Organization Address [facility] de Phone Number [facility] [address] [address] from Last 3 Months or Most Recently Relevant to Health Maintenance Care Teams Automation Engineer Relationship Specialty Start Date End Date Unassigned, Provider [address] [place] [address] PCP - General 08/22/04
--- OUTSIDE RECORDS SUMMARY | 2024-06-07 15:55 | XMS_ITS | Encounter Summary ---
Author Organization [place] Address [address] [place] [address]. [place] [address] Care Team Providers Care Senior Animator Name Role Phone Xenia Clements PA-C Primary Care Provider [phone]- [phone] Jerri Moss MD Unavailable [phone] Alcon Gallegos MD Unavailable [phone] Encounter Details Date Type Department Care Team (Late st Contact Info) Description 06/17/2019 [facility] Medical Advice [facility] Neurology [address] [place] [address] [address] [place] [address] Fely Luque MD [address] [place] [address] Social History Tobacco Use Types [...] documented as of this encounter Care Teams Senior Animator Relationship Specialty Start Date End Date Xenia Clements PA-C [facility] [address] [facility] [address] [place] [address] PCP - General 05/13/02 Jerri Moss MD [facility] [address] [place] [address] Family Practice 12/20/18 Alcon Gallegos MD [address] [place] [address] [address] [place], [place] [address] Neurology 12/20/18 02/21/20 documented as of this encounter
--- NOTE | 2024-06-07 16:00 | CRLHL7_ITS ---
For Patients: As a result of the Century Cures Act, medical imaging exams and procedure reports are released immediately into your electronic medical record. You may view this report before your referring provider. If you have questions, please contact your health care provider. INDICATION: Leiomyoma COMPARISON: 12/29/2022 TECHNIQUE: 2D leroy scale and color Doppler images were acquired of the pelvis using a transabdominal and transvaginal approach. FINDINGS: Large exophytic fundal fibroid measures 11.2 x 6.4 x 10.4 cm, previously measuring 12.5 x 7.6 x 6.1 cm. Anterior lower uterine fibroid on the left measures 3.5 x 2.4 x 3.1 cm, previously measuring 3.5 x 2.6 x 2.4 cm. Uterus measures 8.3 cm in length by 4.1 cm in AP diameter by 4.2 cm in transverse dimension. Endometrium measures 3.6 millimeters. IUD is present within the mid/upper endometrial canal. The right ovary is not visualized and the left ovary measures 3.1 x 1.4 x 2.1 cm. The left ovary demonstrates normal arterial and venous blood flow on color Doppler analysis. There are no suspicious fluid collections within the cul-de-sac. Simple left ovarian cyst is present measuring 1.6 x 1.1 x 1.2 cm. IMPRESSION: Uterine fibroids are similar measuring up to 11.2 cm. Dictated by Elia London MD @ 06/08/2024 5:53:18 AM (Electronically Signed)
== END 2024-06-07 15:52 | disposition home or self-care (01) ==
PROVIDERS: PCP Family Medicine; Visit Provider Physician Assistant
DX: D25.9 Leiomyoma of uterus, unspecified (principal); N92.1 Excessive and frequent menstruation with irregular cycle
CPT/HCPCS: 76830; 76856

== ENCOUNTER 2024-06-28 15:32 | Outpatient (CLI) | payer BC, SELFPAY ==
--- NOTE | 2024-06-28 15:30 | CRLHL7_ITS ---
For Patients: As a result of the Century Cures Act, medical imaging exams and procedure reports are released immediately into your electronic medical record. You may view this report before your referring provider. If you have questions, please contact your health care provider. DXA BONE MINERAL DENSITY STUDY Reason for exam: Osteopenia. Current height (in): 66.5. Weight (lb): 144. Menopause age: 53. Ethnicity: White. 1. Have you had a previous hip or vertebral fracture? No. 2. Have you had any fractures during your adult life which did not result from significant trauma (e.g., auto accident)? No. 3. Did either of your parents have a hip fracture? No. 4. Do you smoke? No. 5. Have you ever taken Glucocorticoids? No. 6. Do you have rheumatoid arthritis? No. 7. Do you have secondary osteoporosis? No. 8. Do you drink 3 or more alcoholic drinks per day? No. 9. Are you being treated for osteoporosis? No. 10. Have you ever taken any of the following medications: Actonel, Evista, Fosamax, Miacalcin, Reclast, Boniva, Forteo, HRT (i.e. estrogen/hormone therapy), Protelos, Prolia, Vitamin D, Calcium, other ??? please specify. ANSWER: Yes, vitamin D and calcium. 11. Do you have any of the following medical conditions: Anorexia or bulimia, asthma or emphysema, end stage renal disease, hyperparathyroidism, any seizure disorders, cancer, inflammatory bowel diseases, hysterectomy, other ??? please specify. ANSWER: No. 12. What was your maximum height (inches)? 67. 13. Do you perform weight bearing exercise regularly? Yes. 14. Do you regularly consume dairy products? Yes. 15. Do you drink caffeinated beverages? Yes. 16. At what age did your period start? 11. 17. Are you premenopausal? No. 18. How many full term pregnancies have you had? 1. 19. Have you ever missed your period for more than 6 months in a row (not including or menopause)? Yes. TECHNIQUE: Bone mineral density study was performed using the Delectable. FINDINGS: The results of the study expressed as bone mineral density (BMD) are as follows: Lumbar spine L1 to L4: BMD: 0.843 g/cm2. T-score: -1.9. Z-score: -0.8. Neck Left: BMD: 0.736 g/cm2. T-score: -1.0. Z-score: 0.0. Right: BMD: 0.710 g/cm2. T-score: -1.2. Z-score: -0.2. Total Left: BMD: 0.908 g/cm2. T-score: -0.3. Z-score: 0.4. Right: BMD: 0.905 g/cm2. T-score: -0.3. Z-score: 0.4. IMPRESSION: Osteopenia. *Comparison exams done prior to 04/2020 were performed on different unit, LightTable. COMPARISON: Compared with scan of 03/27/2021, the bone mineral density has decreased by 1.9 percent at the spine and increased by 1.3 percent at the hip. Compared with scan of 12/29/2018, the bone mineral density has decreased by 2 percent at the spine and increased by 7.5 percent at the hip. FRAX 10-year Fracture Risk Major Osteoporotic Fracture: 5.8 percent Hip Fracture: 0.4 percent Reported Risk Factors: [place] () Neck BMD=0.710, BMI=22.9 Elia London M.D. Diagnostic Radiologist [email or web address] SP/Dictated by: Elia London MD @ 06/29/2024 12:25:00 PM (Electronically Signed)
== END 2024-06-28 15:33 | disposition home or self-care (01) ==
LOC: RAD 15:32
PROVIDERS: PCP Family Medicine; Visit Provider Physician Assistant
DX: M25.571 Pain in right ankle and joints of right foot (principal); M85.89 Other specified disorders of bone density and structure, multiple sites
CPT/HCPCS: 77080

== ENCOUNTER 2024-07-05 19:34 | Outpatient (CLI) | payer BC, SELFPAY ==
--- OUTSIDE RECORDS SUMMARY | 2024-07-05 19:36 | XMS_ITS | Clinical Summary ---
Author Organization [place] Address [address] [place] [address]. [place] [address] Care Team Providers Care Slurry Plant Operator Name Role Phone Xenia Clements PA-C Primary Care Provider +1- [phone] Jerri Moss MD Unavailable Allergies Active Allergy [...] 1 0 10/06/2005 Active NYSTATIN (MOUTH-THROAT) SUSP 046066 U/ML MTIndications:Candid iasis of vulva and vagina [...] Advance Directives For more information, please contact: [phone] * No Code Status (Latest Code Status on File) Date Activated Date Inactivated Comments 10/04/2003 9:28 AM 10/04/2003 10:28 AM Care Teams Slurry Plant Operator Relationship Specialty Start Date End Date Xenia Clements PA-C [facility] [address] [address] PCP - General 05/13/[address] [facility] [address] [place] [address] Family Practice 12/20/18
--- OUTSIDE RECORDS SUMMARY | 2024-07-05 19:36 | XMS_ITS | Clinical Summary ---
Author Organization Formerly [facility] Address [address] [place] [address] Care Team Providers Care Lead Level Designer Name Role Phone Unassigned, Provider Primary Care [...] for each transition of care or referral. [facility] Allerg[facility] Active Allergy Reactions Criticality Noted Date [...] TOTAL AND HDL Routine 09/01/2001 1:25 PM RN HOME CARE PAP TEST, ROUTINE Routine 09/01/2001 10: 10 AM RN HOME CARE from Last 3 Months or Most Recently Relevant to Health Maintenance Results * CHOLESTEROL, TOTAL AND HDL (09/01/2001 1:25 PM RN HOME CARE) Cholesterol 148 <200 mg/dl [facility] HDL 58 >35 mg/dl [facility] 09/01/2001 1:25 PM RN HOME CARE 09/01/2001 1:26 PM RN HOME CARE Rosa Harrison MD LAB_1 Performing Organization Address [facility] de Phone Number [facility] [address] [phone] * PAP SMEAR, ROUTINE (09/01/2001 10:10 AM RN HOME CARE) Pap Smear, Routine See Separate Report Performed at [facility] 09/01/2001 10:1 0 AM RN HOME CARE 09/07/2001 10:53 AM RN HOME CARE Rosa Harrison MD LAB_1 Performing Organization Address [facility] de Phone Number [facility] [address] [phone] from Last 3 Months or Most Recently Relevant to Health Maintenance Care Teams Lead Level Designer Relationship Specialty Start Date End Date Unassigned, Provider [address] [place] [address] PCP - General 08/22/04
--- OUTSIDE RECORDS SUMMARY | 2024-07-05 19:36 | XMS_ITS | Clinical Summary ---
Author Organization [employer] [facility] Address [place], [place] [address] Care Team Providers Care Electronic Game Developer Name Role Phone None, Primary Care Provider [...] Department Care Team Description 06/06/2024 Lab Requisition [facility] [phone] Martha Bello PA-C 06/06/2024 Lab Requisition [facility] [phone] Martha Bello PA-C from Last 3 Months [...] 170.2 cm (5' 7) 10/21/2021 2:17 PM [employer] Body Mass Index 23.71 10/21/2021 2:17 PM [employer] Plan of Treatment Health Maintenance Due Date [...] history exists COVID-19 vaccine series (2022-24 season) 2024 07/23/2022, 09/22/2021, 01/30/2021, Additional history exists Influenza for age 50-64 07/02/2024 Pap test for age 21-65 06/05/2027 , 06/05/2024, 12/22/2022, Additional history exists Pneumococcal series for age 6-64 Aged Out No longer eligible based on patient's age to complete this topic Procedures Procedure Name Priority Date/Time Associated Diagnosis Comments LAB TRACKING EVENT Routine 06/05/2024 1: 30 PM CDT LAB TRACKING EVENT Routine 06/05/2024 1: 30 PM CDT PATH TISSUE EXAM Routine 06/05/2024 1:30 PM CDT ETHNOGRAPHER THIN PREP PAP SCREEN IMAGED Routine 06/05/2024 1:30 PM CDT HPV THIN PREP Routine 06/05/2024 1:30 PM CDT from Last 3 Months Results * LAB TRACKING EVENT (06/05/2024 1:30 PM CDT) Only the most recent of2 resultswithin the time period is included. Other (Other) Client Collect / Unknown 06/05/2024 1:30 PM CDT 06/06/2024 3:36 PM CDT January Eugenia PACHECO LAB BILL ONLY [facility] [address] [place] [address], * (ABNORMAL) ETHNOGRAPHER THIN PREP PAP SCREEN IMAGED (06/05/2024 1:30 PM CDT) Case Report Gynecologic Cytology Report ? Case: [id number] ? Authorizing Provider: ??Martha Bello PA-C ?Collected: ? 06/05/2024 1330 ? Ordering Location: ? [facility] ?Received: ?06/07/2024 0900 ? First Screen: ?Luz Holloway ? Pathologist: ? Eddy Rahman Jr., ? MD ? Specimen: ?ETHNOGRAPHER ThinPrep Vial Screening, Cervical ? 06/15/2024 4:26 PM CDT [facility] ENTRAL LABORATORY INTERPRETATION/ RESULT ATYPICAL SQUAMOUS CELLS OF UNDETERMINED SIGNIFICANCE (ASCUS)(A) (none) 06/15/2024 4:26 PM CDT [facility] IMEN ADEQUACY Satisfactory for evaluation Endocervical component present 06/15/2024 4:26 PM CDT [facility] HPV REQUEST HPV and PAP 06/15/2024 4:26 PM CDT [facility] Last Pap Date 12/22/2022 06/15/2024 4:26 PM CDT [facility] Last Pap Result NIL 4:26 PM CDT [facility] Abnormal Pap or [place] Bx in last 5 years No 06/15/2024 4:26 PM CDT [facility] Menstrual Status Postmenopausal 06/15/2024 4:26 PM CDT [facility] [place] Bx Done Today No 06/15/2024 4:26 PM CDT [facility] Additional Information 06/15/2024 4:26 PM CDT [facility] Comment: Interpreted at [facility] - [address] [place] [address] [address] Automated Review Successful 06/15/2024 4:26 PM CDT [facility] Comment:Specimen processed s uccessfully by automated lead janitor device, ThinPrep Imaging System, [employer] ANCILLARY TESTING ETHNOGRAPHER HPV Ordered, Please see separate report 06/15/2024 4:26 PM CDT [facility] Note The pap test is a screening technique, not a diagnostic procedure. It is used primarily to screen for squamous cancers and precursor lesions. Published studies have shown that it is subject to both false negative and false positive results. The pap test should not be used as the sole means to diagnose or exclude pre-malignant and malignant lesions. 06/15/2024 4:26 PM CDT [facility] Other (Cervical) 06/05/2024 1:30 PM CDT 06/07/2024 9:00 AM CDT January David Bello PA-C PATHOLOGY/CYTOLOGY [facility] [address] [place] [address], * PATH TISSUE EXAM (06/05/2024 1:30 PM CDT) Case Report Pathology Report ?Case: [id number] ? Authorizing Provider: ??Martha Bello PA-C ?Collected: ? 06/05/2024 1330 ? Ordering Location: ? [facility] ?Received: ?06/06/2024 1644 ? Pathologist: ? Elia Foreman MD ? Specimen: ?Endometrial Biopsy ? 06/08/2024 10:32 AM CDT [facility] Final Diagnosis A) ENDOMETRIUM, BIOPSY: 1. Scant atrophic endometrium 2. Fragments of benign endocervical mucosa 3. Negative for hyperplasia, atypia, and malignancy in this sample 06/08/2024 10:32 AM CDT [facility] Clinical Information Abnormal vaginal bleeding 06/08/2024 10:32 AM CDT [facility] Gross Description A) Received in formalin, labeled with the patient's name and date of , is a 2.1 x 0.9 x 0.3 cm aggregate of pink-gonzalez mucosa admixed with clotted blood and mucous. The specimen is entirely submitted in 1 cassette. SJM 06/06/2024 06/08/2024 10:32 AM CDT [facility] Microscopic Description The final diagnosis is based on microscopic examination of appropriate sections of all specimens. 06/08/2024 10:32 AM CDT [facility] Additional Information Interpreted at [facility] - [address] [facility] [address] [facility] [address], [place] [address] 06/08/2024 10:32 AM CDT [facility] Other (Endometrial Biopsy) 06/05/2024 1:30 PM CDT 06/06/2024 4:44 PM CDT January David Bello PA-C PATHOLOGY/CYTOLOGY Performing Organization Address [facility] de Phone Number [facility] [address] [place] [address], * HPV HIGH RISK (06/05/2024 1:30 PM CDT) TYPE 16 Negative Negative 06/08/2024 11:08 AM CDT [facility] TYPE 18 Negative Negative 06/08/2024 11:08 AM CDT [facility] LAB[facility] OTHER HIGH RISK TYPES Negative Negative 06/08/2024 11:08 AM CDT [facility] Other (Cervical) 06/05/2024 1:30 PM CDT 06/07/2024 9:00 AM CDT Narrative [facility] - 06/08/2024 11:08 AM CDT HPV types 16, 18, 31, 33, 35, 39, 45, 51, 52, 56, 58, 59, 66 and 68 DNA were undetectable or below the pre-set threshold. Methodology: [employer] [facility] 4800 HPV Test Martha David Bello PA-C MICROBIOLOGY [facility] [address] [place] [address], from Last 3 Months Care Teams Electronic Game Developer Relationship Specialty Start Date End Date None, Dr Quezada PCP - General 10/26/06
--- OUTSIDE RECORDS SUMMARY | 2024-07-05 19:36 | XMS_ITS | Referral Summary ---
Author Organization [facility] Address [address] [place] [address]. [place] [address] Care Team Providers Care Residential Treatment Staff Name Role Phone Xenia Clements PA-C Primary Care Provider [phone] Jerri Moss MD Unavailable [phone] Allergies Active Allergy Reactions Criticality Noted Date [...] 1 0 10/06/2005 Active NYSTATIN (MOUTH-THROAT) SUSP 958326 U/ML MTIndications:Candid iasis of vulva and vagina [...] Advance Directives For more information, please contact: [phone] * No Code Status (Latest Code Status on File) Date Activated Date Inactivated Comments 10/04/2003 9:28 AM 10/04/2003 10:28 AM Care Teams Residential Treatment Staff Relationship Specialty Start Date End Date Xenia Clements PA-C [facility] [address] [address] PCP - General 05/13/[address] [facility] [address] [place] [address] Family Practice 12/20/18
--- OUTSIDE RECORDS SUMMARY | 2024-07-05 19:37 | XMS_ITS | Encounter Summary ---
Author Organization [facility] Address [address] [place] [address]. [place] [address] Care Team Providers Care Outreach Rep Name Role Phone Xenia Clements PA-C Primary Care Provider [phone] Jerri Moss MD Unavailable [phone] Alcon Gallegos MD Unavailable [phone] Reason for Visit * Reason Onset Date Comments Orders 06/12/2019 MRI order Encounter Details Date Type Department Care Team ([facility] st Contact Info) Description 06/12/[address] [place] [address] Fely Luque MD [address] [place] [address] Orders (MRI order) Social History [...] encounter Miscellaneous Notes * Telephone Encounter - JoshuaCaren sánchez - 06/12/2019 4:05 PM CDT [facility] MRI order faxed to [facility] at [phone] Karen Collins CMA Phone Message May a detailed message be left on voicemail: yes Reason for Call: Other: Susy calling to request that the MRI order be sent to [facility] in [place] as we are not in network per her insurance. Their fax number is [phone]. Please call her once the order has been faxed so she can schedule her appointment Action Taken: Message routed to: [facility] Neurology documented in this encounter Plan of Treatment Not on file documented as of this encounter Visit Diagnoses Not on filedocumented in this encounter Additional Health Concerns Assessment Noted Time PHQ-9 Depression Total Score: 6 07/05/20 24 9:43 AM CDT documented as of this encounter Care Teams Outreach Rep Relationship Specialty Start Date End Date Xenia Clements PA-C [facility] [address] [address] PCP - General 05/13/02 Jerri Moss MD [facility] [address] [place] [address] Family Practice 12/20/18 Alcon Gallegos MD [address] [place] [address] [address] [place] [address] Neurology 12/20/18 02/21/20 documented as of this encounter
--- OUTSIDE RECORDS SUMMARY | 2024-07-05 19:37 | XMS_ITS | Continuity of Care Document ---
Author Organization [facility] Address [address] [place] [address] Phone Care Team Providers Care Tester Armature Or Fields Name Role Phone Stepan Mckeon MD Unavailable [...] tient Visit,Est, Mod [facility], [address], [place], [place], [id number], [place] tel:[phone] [facility] Other spondylosis, thoracic region Linda Ying. [facility] [place], [address], [address], [place], [place], [id number], [place]. tel:[phone] Referring Provider: Yakov King, [facility] [address], [place], [address] . tel:[phone] Office/Outpa tient Visit,New, Mod [facility], [address], [place], [place], [id number], [place] tel:[phone] [facility] Other kyphosis, thoracic regionAdolescen t idiopathic scoliosis, site unspecified Christine Nagy. [facility], [address] [place] [address] [address], [place], [place], [id number], [place]. tel:[phone] Referring Provider: Yakov King, [facility] [address] [place] [address] [address], [place], [address] . tel:[phone] Office consultation , moderate Z [facility] [place], [address] [facility] [address] [facility] [address], [place], [address], [place] tel:[phone] [facility] No Information No Information Referring Provider: Romy Gordillo [facility] [address] [place] [address]. tel:[phone] Family History Family Member Type Diagnosis Age At Onset No Information Payers Payer name Insurance type Covered democrat ID Orville gerber(alfredito) [facility] [id number] [facility] [id number] Social History Type Description Quantity Date Captured [...]
--- OUTSIDE RECORDS SUMMARY | 2024-07-05 19:37 | XMS_ITS | Continuity of Care Document ---
Author Organization [facility] Address [address] [address] [place] [address] Phone Care Team Providers Care Lumber Driver Name Role Phone Link Avinash KRUEGER Unavailable Unavailable Allergies, Adverse Reactions, Alerts Substance Reaction Status Criticality nickel Rash Active No Information tetracycline Hives Active No Information Sulfa (Sulfonamide Antibiotics) Hives Active No Information Medications Medication Instructions Dosage Effective Dates (start - stop) Status Comments budesonide DR - ER 3 mg capsule,delayed,exten ded release take 3 capsule by ORAL route every day in the morning 9 MG - Active Pepto-Bismol Max St 525 mg/15 mL oral suspension as needed - Active Probiotic 10 billion cell capsule take 1 by Oral route every day 1 - Active Cymbalta 30 mg capsule,delayed release take 3 capsule by oral route every day wean as directed 90 MG - Active Lomotil 2.5 mg-0.025 mg tablet take 2 tablet by oral route 4 times every day as needed. Max dose 20 mg daily. - Active Milagro 180 mg tablet take 1 tablet by o ral route every day 180 MG - Active Procedures Procedure Date Sigmoidoscopy Flex; W/bx 1/mx 7 Level Iv-surg Path Gross/micro 17 Offic/outpt E&m Estab Mod-hi 2 17 Offic/outpt E&m New Mod-hi Routine Serum Collection Folic Acid; Serum Vitamin D; 25 Hydroxy Cyanocobalamin Advance Directives Directive Yes / No Effective Date File Name No Information Encounters Encounter Description Practice Location Reason(s) For Visit Diagnoses Date Provider Providers Copied on Encounter [facility] [place], [address] [address], [place], [id number], tel:[phone] Peds Clinic No Information 7 Link MD Da Silva. [address] [place] [address], [id number], . [phone] [facility], [address] [address], [place], [id number], tel:[phone] [facility] Diarrhea, unspecifiedLymph ocytic colitis 0 7 Link MD Da Silva. [address] [place] [address], [id number], [place]. [phone] Referring Provider: Referral Self, USE FOR SELF REFERRALS. Offic/outpt E&m [facility] Mod-hi 2 [facility], [address] [address], [place], [id number], tel:[phone] [facility] GI Symptoms or Concerns (chief complaint) Diarrhea, unspecified typeLeft lower quadrant pain 7 [address]. [address] [place] [address], [place], [place], [id number], [place]. tel:[phone] Referring Provider: Joe Rand MD, [address] [place], [address]. tel:[phone] Offic/outpt E&m New Mod-hi [facility], [address] [address], [place], [id number], tel:[phone] [facility] GI Symptoms or Concerns (chief complaint) Celiac diseaseCeliac disease 5 No Information Family History Family Member Type Diagnosis Age At Onset Sister Problem (finding) celiac disease Mother Problem (finding) celiac disease Daughter Problem (finding) Alive and well Father Problem (finding) Heart disease Immunizations Vaccine Date Status Comments Influenza virus vaccine, injectable, quadrivalent, split virus, preservative free, 3 years or older Fluarix Quad administered Note: Invalid docume nted admin date was /. ; Source: Other Provider Payers Payer name Insurance type Covered constitution party ID Orville gerber(s) Willy Ribeiro Of [facility] [id number] Social History Type Description Quantity Date Captured Comments Sex Female Smoking Status No Information Chief Complaint And Reason For Visit No Information Reason For Referral Reason For Referral No Information Plan Of Treatment Date Type Action Status Referral Ordered: CT Abdomen And Pelvis WITH Contrast Appointment date/timeframe: -today ordered Referral Ordered: Flexible Sigmoidoscopy Appointment date/timeframe: 08/10/2017 ordered History Of Present Illness Encounter Date Complaint History Of Prese nt Illness GI Symptoms or Concerns Susy santos is a 39-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 She began having profuse diarrhea. She estimates anywhere from 10 to 20 bouts of diarrhea per day. She has abdominal pain, cramping, and prior bowel movements. More recently, the pain has been persistent and not improved with passage of stool. Discomfort is in her lower abdomen. She denies any bloody stool or black stool. She denies fever or chills. She mentioned some nausea without vomiting. She has lost approximately six pounds in the past two weeks. She sought medical attention at the emergency room at [facility]. At that time, stool studies were obtained. This included a C. diff, ova and parasite, and giardia. These initial stool studies were negative as of July 23. She did require IV fluids. Her symptoms persisted, so she went to a [facility] GI Symptoms or Concerns Ludivina goetz is a 45-year-old white female from [facility] seen today in consultation regarding recently diagnosed celiac disease. 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 During this past summer, she underwent a preoperative evaluation prior to surgery for varicose veins which was subsequently performed successfully. Preoperative evaluation showed hemoglobin 9.6, hematocrit 32, MCV 74, and MCH 22. The patient had complained of low energy for the prior six to seven months. She told me today that she has a longstanding history of what was previously diagnosed as irritable bowel syndrome with symptoms consisting of alternating diarrhea and constipation. In addition for an extended period of time, she had been bothered by considerable abdominal bloating and cramping discomfort. In that regard, she had started avoiding pasta and other high-carbohydrate foods with some improvement in those symptoms. The patient underwent further preoperative evaluation in [facility] Functional Status Date Functional Assessmen t No Information Instructions Date Instruction Additional Infor ish 1. We will arrange f or the patient to meet with dietitian to further review gluten-free diet.2. Subsequent followup will be in the [facility].3. We will obtain bone density study.4. Laboratory, vitamin D, vitamin B12, folic acid, and thyroid cascade.5. Influenza vaccination recommended. The patient indicated she would obtain this through her primary care physician.6. The patient and I spent considerable time today reviewing the diagnosis of celiac disease and further evaluation as noted above plus treatment with gluten-free diet. At this point, therefore, I believe that the patient's immediate concerns and questions were satisfactorily answered. Related to Celiac disease Celiac Folder Related to Carmela c disease [facility]2 000 [facility] [id number]/@9AM DEXA Bone Density St udy; Axial Skeleton (e.g. Hips, Pelvis, Spine) Assessments Type Assessment Date No Information Patient Care Teams Name Effective Dates (start - stop) Status Members No Information
--- OUTSIDE RECORDS SUMMARY | 2024-07-05 19:37 | XMS_ITS | Encounter Summary ---
Author Organization [facility] Address [address] [place] [address]. [place] [address] Care Team Providers Care Nursery Supervisor Name Role Phone Xenia Clements PA-C Primary Care Provider [phone] Jerri Moss MD Unavailable [phone] Alcon Gallegos MD Unavailable [phone] Encounter Details Date Type Department Care Team (Late st Contact Info) Description 06/17/2019 [facility] Advice [facility] Neurology [address] [place] [address] [address] [place] [address] Fely Luque MD [address] [place] [address] Social History Tobacco Use Types [...] documented as of this encounter Care Teams Nursery Supervisor Relationship Specialty Start Date End Date Xenia Clements PA-C [facility] [address] [facility] [address] [place] [address] PCP - General 05/13/02 Jerri Moss MD [facility] [address] [place] [address] Family Practice 12/20/18 Alcon Gallegos MD [address] [place] [address] [address] [place], [place] [id number] Neurology 12/20/18 02/21/20 documented as of this encounter
--- NOTE | 2024-07-05 19:45 | MR_ITS ---
[address] [address] Phone:?[phone] Fax:?[phone] Referring Physician Information: Bhavesh Carlos M.D. [address] [facility] [address] Phone:?[phone] Fax:?[phone] Patient:Kodi Gonzalez D.O.B:?1970 Sex:?Female Phone:?[phone] [facility] MRN:?[id number] Exam Date:?07/05/2024 EXAM: MRI of the RIGHT ANKLE, without contrast CLINICAL: Right ankle and foot pain status post fall. Evaluate for peroneal tendon pathology versus fibular stress fracture. History of prior right ankle surgery in March 2022. COMPARISONS: None available. TECHNICAL: Multiplanar multisequence MRI of the right ankle was obtained. SEDATION: None. CONTRAST: None. FINDINGS: Achilles tendon: No tendinopathy or tear. No retrocalcaneal bursitis. Plantar fascia: Unremarkable. Tarsal tunnel: No masses identified. Sinus Tarsi:?Normal fat within the sinus tarsi without significant scar, synovitis, or mass lesion. Ligaments: Anterior talofibular: Evaluation of the ligament is relatively limited due to adjacent artifact. Mild irregularity of the ligament as visualized likely reflecting sequelae of prior sprain injury. Calcaneofibular: Evaluation of the ligament is relatively due to adjacent artifact. No evidence of tendon rupture as visualized. Posterior talofibular: Evaluate is relatively limited due to adjacent artifact. No evidence of tendon rupture as visualized. Syndesmotic:?Posterior inferior tibiofibular ligament appears intact. The anterior inferior tibiofibular ligament is not able to be well evaluated secondary to artifact. Deltoid: The deep and superficial components of the deltoid ligament are intact. Spring: Intact. Bifurcate and calcaneocuboid: Intact. Flexor tendons: Posterior tibial: Mild fluid about the distal tendon. No significant tendinosis or tendon tear. Flexor digitorum longus: Normal. Flexor hallucis longus: Normal. Peroneus brevis and longus: No tendinosis, tear or tenosynovitis. Extensor tendons: Tibialis anterior: Normal. Extensor hallucis longus: Normal. Extensor digitorum longus: Normal. Joints/Osseous structures: Postoperative changes of prior open reduction internal fixation of the distal fibula with associated prominent artifact limiting evaluation of adjacent structures. There are also postoperative changes of prior distal tibiofibular fixation surgery with surgical hardware artifact limiting evaluation of adjacent structures. There is question of a small subchondral fracture involving the lateral tibial plafond on coronal series 8.1 images 16-18. No talar dome osteochondral lesion. No significant joint effusion. IMPRESSION: 1. Postoperative changes of prior open reduction internal fixation of the distal fibula and prior distal tibiofibular fixation surgery with associated surgical hardware artifact significantly limiting evaluation of adjacent structures. Question of a small subchondral fracture involving the lateral tibial plafond as visualized. 2. Suspect sequelae of prior sprain injury involving the anterior talofibular ligament as visualized. 3. Mild fluid about the distal posterior tibialis tendon. Flexor and extensor tendons otherwise appear intact and unremarkable. JCZ Electronically signed on 07/06/2024 8:23:00 AM by Min Escobar D.O.
== END 2024-07-05 19:35 | disposition home or self-care (01) ==
PROVIDERS: PCP Family Medicine; Visit Provider Orthopaedic Surgery
DX: M25.571 Pain in right ankle and joints of right foot (principal); S93.491A Sprain of other ligament of right ankle, initial encounter
CPT/HCPCS: 73721

== ENCOUNTER 2024-07-11 17:35 | Outpatient (CLI) | payer BC, SELFPAY ==
--- OUTSIDE RECORDS SUMMARY | 2024-07-11 17:38 | XMS_ITS | Clinical Summary ---
Author Organization [facility] Address [address] [place] [address]. [place] [address] Care Team Providers Care Allergy And Immunology Chief Name Role Phone Xenia Clements PA-C Primary Care Provider +1- [phone] Jerri Moss MD Unavailable [phone] Allergies Active Allergy Reactions Criticality Noted Date [...] 1 0 10/06/2005 Active NYSTATIN (MOUTH-THROAT) SUSP 723215 U/ML MTIndications:Candid iasis of vulva and vagina [...] Advance Directives For more information, please contact: [phone] * No Code Status (Latest Code Status on File) Date Activated Date Inactivated Comments 10/04/2003 9:28 AM 10/04/2003 10:28 AM Care Teams Allergy And Immunology Chief Relationship Specialty Start Date End Date Xenia Clements PA-C [facility] [address] [address] PCP - General 05/13/02 Jerri Moss MD [facility] [address] [place] [address] Family Practice 12/20/18
--- OUTSIDE RECORDS SUMMARY | 2024-07-11 17:38 | XMS_ITS | Clinical Summary ---
Author Organization [facility] Address [address] [place] [address] Care Team Providers Care Ship Laborer Name Role Phone Unassigned, Provider Primary Care [...] for each transition of care or referral. [facility] Allergies Active Allergy Reactions Criticality Noted Date [...] of 2) 2019 COVID-19 Vaccine ( season) 2024 09/22/2021, 01/30/2021, 01/02/2021 Influenza (#1) 2024 10/13/2021, [...] TOTAL AND HDL Routine 09/01/2001 1:25 PM ACCOUNTS CLERK PAP TEST, ROUTINE Routine 09/01/2001 10: 10 AM ACCOUNTS CLERK from Last 3 Months or Most Recently Relevant to Health Maintenance Results * CHOLESTEROL, TOTAL AND HDL (09/01/2001 1:25 PM ACCOUNTS CLERK) Cholesterol 148 <200 mg/dl [facility] HDL 58 >35 mg/dl [facility] 09/01/2001 1:25 PM ACCOUNTS CLERK 09/01/2001 1:26 PM ACCOUNTS CLERK Rosa Harrison MD LAB_1 Performing Organization Address [facility] de Phone Number [facility] [address] [phone] * PAP SMEAR, ROUTINE (09/01/2001 10:10 AM ACCOUNTS CLERK) Pap Smear, Routine See Separate Report Performed at [facility] 09/01/2001 10:1 0 AM ACCOUNTS CLERK 09/07/2001 10:53 AM ACCOUNTS CLERK Rosa Harrison MD LAB_1 Performing Organization Address [facility] de Phone Number [facility] [address] [address] from Last 3 Months or Most Recently Relevant to Health Maintenance Care Teams Ship Laborer Relationship Specialty Start Date End Date Unassigned, Provider [address] [place] [address] PCP - General 08/22/04
--- OUTSIDE RECORDS SUMMARY | 2024-07-11 17:38 | XMS_ITS | Clinical Summary ---
Author Organization [employer] [facility] Address [place], [place] [address] Care Team Providers Care Business Reporting Developer Name Role Phone None, Primary Care [...] Department Care Team Description 06/06/2024 Lab Requisition [facility] [phone] Martha Bello PA-C 06/06/2024 Lab Requisition [facility] [phone] Martha Bello PA-C from Last 3 Months [...] 170.2 cm (5' 7) 10/21/2021 2:17 PM CLINICAL STAFF RN Body Mass Index 23.71 10/21/2021 2:17 PM CLINICAL STAFF RN Plan of Treatment Health Maintenance Due Date [...] TISSUE EXAM Routine 06/05/2024 1:30 PM CDT LINE ERECTOR APPRENTICE THIN PREP PAP SCREEN IMAGED Routine 06/05/2024 1:30 PM CDT HPV THIN PREP Routine 06/05/2024 1:30 PM CDT from Last 3 Months Results * LAB TRACKING EVENT (06/05/2024 1:30 PM CDT) Only the most recent of2 resultswithin the time period is included. Other (Other) Client Collect / Unknown 06/05/2024 1:30 PM CDT 06/06/2024 3:36 PM CDT January Eugenia PACHECO LAB BILL ONLY [facility] [address] [place] [address], * (ABNORMAL) LINE ERECTOR APPRENTICE THIN PREP PAP SCREEN IMAGED (06/05/2024 1:30 PM CDT) Case Report Gynecologic Cytology Report ? Case: [id number] ? Authorizing Provider: ??Martha Bello PA-C ?Collected: ? 06/05/2024 1330 ? Ordering Location: ? [facility] ?Received: ?06/07/2024 0900 ? First Screen: ?Luz Holloway ? Pathologist: ? Eddy Rahman Jr., ? MD ? Specimen: ?LINE ERECTOR APPRENTICE ThinPrep Vial Screening, Cervical ? 06/15/2024 4:26 PM CDT [facility] ENTRAL LABORATORY INTERPRETATION/ RESULT ATYPICAL SQUAMOUS CELLS OF UNDETERMINED SIGNIFICANCE (ASCUS)(A) (none) 06/15/2024 4:26 PM CDT [facility] IMEN ADEQUACY Satisfactory for evaluation Endocervical component present 06/15/2024 4:26 PM CDT [facility] HPV REQUEST HPV and PAP 06/15/2024 4:26 PM CDT [facility] Last Pap Date 12/22/2022 06/15/2024 4:26 PM CDT [facility] Last Pap Result NIL 4:26 PM CDT [facility] Abnormal Pap or [place] Bx in last 5 years No 06/15/2024 4:26 PM CDT [facility] Menstrual Status Postmenopausal 06/15/2024 4:26 PM CDT [facility] [place] Bx Done Today No 06/15/2024 4:26 PM CDT [facility] Additional Information 06/15/2024 4:26 PM CDT [facility] Comment: Interpreted at [facility] - [address] [place] [address] [address] Automated Review Successful 06/15/2024 4:26 PM CDT [facility] Comment:Specimen processed s uccessfully by automated drum filler device, ThinPrep Imaging System, [employer] ANCILLARY TESTING LINE ERECTOR APPRENTICE HPV Ordered, Please see separate report 06/15/2024 4:26 PM CDT [facility] Note The pap test is a [...] and malignant lesions. 06/15/2024 4:26 PM CDT [facility] Other (Cervical) 06/05/2024 1:30 PM CDT 06/07/2024 9:00 AM CDT January David Bello PA-C PATHOLOGY/CYTOLOGY [facility] [address] [place] [address], * PATH TISSUE EXAM (06/05/2024 1:30 PM CDT) Case Report Pathology Report ?Case: [id number] ? Authorizing Provider: ??Martha Bello PA-C ?Collected: ? 06/05/2024 1330 ? Ordering Location: ? [facility] ?Received: ?06/06/2024 1644 ? Pathologist: ? Elia Foreman MD ? Specimen: ?Endometrial Biopsy ? 06/08/2024 10:32 AM CDT [facility] Final Diagnosis A) ENDOMETRIUM, BIOPSY: 1. Scant atrophic endometrium 2. Fragments of benign endocervical mucosa 3. Negative for hyperplasia, atypia, and malignancy in this sample 06/08/2024 10:32 AM CDT [facility] [employer] [facility] Clinical Information Abnormal vaginal bleeding 06/08/2024 10:32 AM CDT [facility] Gross Description A) Received in formalin, labeled with the patient's name and date of , is a 2.1 x 0.9 x 0.3 cm aggregate of pink-gonzalez mucosa admixed with clotted blood and mucous. The specimen is entirely submitted in 1 cassette. SJM 06/06/2024 06/08/2024 10:32 AM CDT [facility] Microscopic Description The final diagnosis is based on microscopic examination of appropriate sections of all specimens. 06/08/2024 10:32 AM CDT [facility] Additional Information Interpreted at [facility] - [address] [facility] [address], [place] [address] 06/08/2024 10:32 AM CDT [facility] Other (Endometrial Biopsy) 06/05/2024 1:30 PM CDT 06/06/2024 4:44 PM CDT January David Bello PA-C PATHOLOGY/CYTOLOGY Performing Organization Address [facility] de Phone Number [facility] [address] [place] [address], * HPV HIGH RISK (06/05/2024 1:30 PM CDT) TYPE 16 Negative Negative 06/08/2024 11:08 AM CDT [facility] TYPE 18 Negative Negative 06/08/2024 11:08 AM CDT [facility] OTHER HIGH RISK TYPES Negative Negative 06/08/2024 11:08 AM CDT [facility] Other (Cervical) 06/05/2024 1:30 PM CDT 06/07/2024 9:00 AM CDT Narrative [facility] - 06/08/2024 11:08 AM CDT HPV types 16, 18, 31, 33, 35, 39, 45, 51, 52, 56, 58, 59, 66 and 68 DNA were undetectable or below the pre-set threshold. Methodology: [employer] 4800 HPV Test Martha David Bello PA-C MICROBIOLOGY [facility] [address] [place] [address], from Last 3 Months Care Teams Business Reporting Developer Relationship Specialty Start Date End Date None, Dr Quezada PCP - General 10/26/06
--- OUTSIDE RECORDS SUMMARY | 2024-07-11 17:38 | XMS_ITS | Referral Summary ---
Author Organization [facility] Address [address] [place] [address]. [place] [address] Care Team Providers Care Solutions Market Consultant Name Role Phone Xenia Clements PA-C Primary Care Provider [phone]- [phone] Jerri Moss MD Unavailable [phone] Allergies Active Allergy Reactions Criticality Noted Date [...] 1 0 10/06/2005 Active NYSTATIN (MOUTH-THROAT) SUSP 885021 U/ML MTIndications:Candid iasis of vulva and vagina [...] Advance Directives For more information, please contact: [phone] * No Code Status (Latest Code Status on File) Date Activated Date Inactivated Comments 10/04/2003 9:28 AM 10/04/2003 10:28 AM Care Teams Solutions Market Consultant Relationship Specialty Start Date End Date Xenia Clements PA-C [facility] [address] [address] PCP - General 05/13/02 Jerri Moss MD [facility] [address] [place] [address] Family Practice 12/20/18
--- OUTSIDE RECORDS SUMMARY | 2024-07-11 17:39 | XMS_ITS | Encounter Summary ---
Author Organization [facility] Address [address] [place] [address]. [place] [address] Care Team Providers Care Ultrasonic Cleaner Name Role Phone Xenia Clements PA-C Primary Care Provider +1- [phone] Jerri Moss MD Unavailable [phone] Alcon Gallegos MD Unavailable [phone] Reason for Visit * Reason Onset Date Comments Orders 06/12/2019 MRI order Encounter Details Date Type Department Care Team ([facility] st Contact Info) Description 06/12/[address] [place] [address] Fely Luque MD [address] [place] [address] Orders (MRI order) Social History [...] Caren Joshua - 06/12/2019 4:[address] [facility] MRI order faxed to [facility] at [phone] Karen Collins CMA Phone Message May a detailed message be left on voicemail: yes Reason for Call: Other: Susy calling to request that the MRI order be sent to [facility] in [place] as we are not in network per her insurance. Their fax number is [phone]. Please call her once the order has been faxed so she can schedule her appointment Action Taken: Message routed to: [facility] Neurology documented in this encounter Plan of Treatment Not on file documented as of this encounter Visit Diagnoses Not on filedocumented in this encounter Additional Health Concerns Assessment Noted Time PHQ-9 Depression Total Score: 6 07/11/20 24 9:46 AM CDT documented as of this encounter Care Teams Ultrasonic Cleaner Relationship Specialty Start Date End Date Xenia Clements PA-C [facility] [address] [address] PCP - General 05/13/02 Jerri Moss MD [facility] [address] [place] [address] Family Practice 12/20/18 Alcon Gallegos MD [address] [place] [address] [address] [place] [address] Neurology 12/20/18 02/21/20 documented as of this encounter
--- OUTSIDE RECORDS SUMMARY | 2024-07-11 17:39 | XMS_ITS | Encounter Summary ---
Author Organization [facility] Address [address] [place] [address]. [place] [address] Care Team Providers Care Manager Demand Name Role Phone Xenia Clements PA-C Primary Care Provider +[phone]- [phone] Jerri Moss MD Unavailable [phone] Alcon Gallegos MD Unavailable [phone] Encounter Details Date Type Department Care Team (Late st Contact Info) Description 06/17/2019 [facility] Medical Advice [facility] Neurology [address] [place] [address] [address] [place] [address] Fely Luque MD [address] [place] [address] Social History Tobacco Use Types [...] documented as of this encounter Care Teams Manager Demand Relationship Specialty Start Date End Date Xenia Clements PA-C [facility] [address] [facility] [address] [place] [address] PCP - General 05/13/02 Jerri Moss MD [facility] [address] [place] [address] Family Practice 12/20/18 Alcon Gallegos MD [address] [place] [address] [address] [place], [place] [address] Neurology 12/20/18 02/21/20 documented as of this encounter
--- NOTE | 2024-07-11 17:40 | CRLHL7_ITS ---
For Patients: As a result of the Century Cures Act, medical imaging exams and procedure reports are released immediately into your electronic medical record. You may view this report before your referring provider. If you have questions, please contact your health care provider. BILATERAL SCREENING MAMMOGRAM WITH COMPUTER-AIDED DETECTION AND TOMOSYNTHESIS TECHNIQUE: CC and MLO views were obtained. These mammographic images have been obtained using full-field digital technique. These mammographic images were interpreted with the benefit of computer-aided detection. Breast Tomosynthesis was used in this interpretation. COMPARISON FILM: 03/18/23, 03/11/23, 03/27/21. FINDINGS: The breasts are heterogeneously dense, which may obscure small masses. IMPRESSION: There is no radiographic evidence for malignancy. ASSESSMENT: BI-RADS Category 2: Benign RECOMMENDATION: Routine screening mammogram in 1 year. A lay language report of this examination will be provided to the patient. Elia London M.D. Diagnostic Radiologist [email or web address] SP/Dictated by: Elia London MD @ 07/13/2024 10:29:00 AM (Electronically Signed)
== END 2024-07-11 17:36 | disposition home or self-care (01) ==
LOC: MAMMO 17:35
PROVIDERS: PCP Family Medicine; Visit Provider Physician Assistant
DX: Z12.31 Encounter for screening mammogram for malignant neoplasm of breast (principal); R92.2 Inconclusive mammogram
CPT/HCPCS: 77063; 77067

== ENCOUNTER 2024-07-12 16:27 | Outpatient (CLI) | payer BC, SELFPAY ==
--- OUTSIDE RECORDS SUMMARY | 2024-07-12 16:30 | XMS_ITS | Encounter Summary ---
Author Organization [facility] Address [address] [place] [address]. [place] [address] Care Team Providers Care Dog Sitter Name Role Phone Xenia Clements PA-C Primary Care Provider [phone]- [phone] Jerri Moss MD Unavailable [phone] Alcon Gallegos MD Unavailable [phone] Reason for Visit * Reason Onset Date Comments Orders 06/12/2019 MRI order Encounter Details Date Type Department Care Team ([facility] st Contact Info) Description 06/12/[address] [place] [address] Fely Luque MD [address] [place] [address] Orders (MRI order) Social History [...] Caren Joshua - 06/12/2019 4:05 PM CDT [facility] MRI order faxed to [facility] at [phone] Karen Collins CMA Phone Message May a detailed message be left on voicemail: yes Reason for Call: Other: Susy calling to request that the MRI order be sent to [facility] in [place] as we are not in network per her insurance. Their fax number is [phone]. Please call her once the order has been faxed so she can schedule her appointment Action Taken: Message routed to: [facility] Neurology documented in this encounter Plan of Treatment Not on file documented as of this encounter Visit Diagnoses Not on filedocumented in this encounter Additional Health Concerns Assessment Noted Time PHQ-9 Depression Total Score: 11 024 9:03 AM CDT documented as of this encounter Care Teams Dog Sitter Relationship Specialty Start Date End Date Xenia Clements PA-C [facility] [address] [address] PCP - General 05/13/02 Jerri Moss MD [facility] [address] [place] [address] Family Practice 12/20/18 Alcon Gallegos MD [address] [place] [address] [address] [place] [address] Neurology 12/20/18 02/21/20 documented as of this encounter
--- OUTSIDE RECORDS SUMMARY | 2024-07-12 16:30 | XMS_ITS | Clinical Summary ---
Author Organization [place] Address [address] [place] [address]. [place] [address] Care Team Providers Care Full Stack Developer Name Role Phone Xenia Clements PA-C Primary Care Provider [phone]- [phone] Jerri Moss MD Unavailable [phone] Allergies Active Allergy Reactions Criticality Noted Date [...] 1 0 10/06/2005 Active NYSTATIN (MOUTH-THROAT) SUSP 048294 U/ML MTIndications:Candid iasis of vulva and vagina [...] Advance Directives For more information, please contact: [phone] * No Code Status (Latest Code Status on File) Date Activated Date Inactivated Comments 10/04/2003 9:28 AM 10/04/2003 10:28 AM Care Teams Full Stack Developer Relationship Specialty Start Date End Date Xenia Clements PA-C [facility] [address] [address] PCP - General 05/13/02 Jerri Moss MD [facility] [address] [place] [address] Family Practice 12/20/18
--- OUTSIDE RECORDS SUMMARY | 2024-07-12 16:30 | XMS_ITS | Clinical Summary ---
Author Organization [facility] Address [address] [place] [address] Care Team Providers Care Supervisor Rolling Room Name Role Phone Unassigned, Provider Primary Care [...] for each transition of care or referral. [facility] Allergies Active Allergy Reactions Criticality Noted Date [...] TOTAL AND HDL Routine 09/01/2001 1:25 PM SET UP TECHNICIAN PAP TEST, ROUTINE Routine 09/01/2001 10: 10 AM SET UP TECHNICIAN from Last 3 Months or Most Recently Relevant to Health Maintenance Results * CHOLESTEROL, TOTAL AND HDL (09/01/2001 1:25 PM SET UP TECHNICIAN) Cholesterol 148 <200 mg/dl [facility] HDL 58 >35 mg/dl [facility] 09/01/2001 1:25 PM SET UP TECHNICIAN 09/01/2001 1:26 PM SET UP TECHNICIAN Rosa Harrison MD LAB_1 Performing Organization Address [facility] de Phone Number [facility] [address] [phone] * PAP SMEAR, ROUTINE (09/01/2001 10:10 AM SET UP TECHNICIAN) Pap Smear, Routine See Separate Report Performed at [facility] 09/01/2001 10:1 0 AM SET UP TECHNICIAN 09/07/2001 10:53 AM SET UP TECHNICIAN Rosa Harrison MD LAB_1 Performing Organization Address [facility] de Phone Number [facility] [address] [address] from Last 3 Months or Most Recently Relevant to Health Maintenance Care Teams Supervisor Rolling Room Relationship Specialty Start Date End Date Unassigned, Provider [address] [place] [address] PCP - General 08/22/04
--- OUTSIDE RECORDS SUMMARY | 2024-07-12 16:30 | XMS_ITS | Encounter Summary ---
Author Organization [place] Address [address] [place] [address]. [place] [address] Care Team Providers Care Medical Assistant Secretary Name Role Phone Xenia Clements PA-C Primary Care Provider [phone]- [phone] Jerri Moss MD Unavailable [phone] Alcon Gallegos MD Unavailable [phone] Encounter Details Date Type Department Care Team (Late st Contact Info) Description 06/17/2019 [facility] Medical Advice [facility] Neurology [address] [place] [address] [address] [place] [address] Fely Luque MD [address] [place] [address] Social History Tobacco Use Types [...] documented as of this encounter Care Teams Medical Assistant Secretary Relationship Specialty Start Date End Date Xenia Clements PA-C [facility] [address] [facility] [address] [place] [address] PCP - General 05/13/[address] [facility] [address] [place] [address] Family Practice 12/20/18 Alcon Gallegos MD [address] [place] [address] [address] [place], [place] [address] Neurology 12/20/18 02/21/20 documented as of this encounter
--- OUTSIDE RECORDS SUMMARY | 2024-07-12 16:30 | XMS_ITS | Referral Summary ---
Author Organization [facility] Address [address] [place] [address]. [place] [address] Care Team Providers Care Radio Host Name Role Phone Xenia Clements PA-C Primary Care Provider [phone] Jerri Moss MD Unavailable [phone] Allergies Active Allergy Reactions Criticality Noted Date [...] 1 0 10/06/2005 Active NYSTATIN (MOUTH-THROAT) SUSP 400543 U/ML MTIndications:Candid iasis of vulva and vagina [...] Advance Directives For more information, please contact: [phone] * No Code Status (Latest Code Status on File) Date Activated Date Inactivated Comments 10/04/2003 9:28 AM 10/04/2003 10:28 AM Care Teams Radio Host Relationship Specialty Start Date End Date Xenia Clements PA-C [facility] [address] [address] PCP - General 05/13/02 Jerri Moss MD [facility] [address] [place] [address] Family Practice 12/20/18
--- OUTSIDE RECORDS SUMMARY | 2024-07-12 16:30 | XMS_ITS | Clinical Summary ---
Author Organization [facility] Address [place], [place] [address] Care Team Providers Care Packaging Inspector Name Role Phone None, Primary Care [...] Department Care Team Description 06/06/2024 Lab Requisition [facility] [phone] Martha Bello PA-C 06/06/2024 Lab Requisition [facility] [phone] Martha Bello PA-C from Last 3 Months [...] 170.2 cm (5' 7) 10/21/2021 2:17 PM MEDICAL DIRECTOR OF HOSPICE Body Mass Index 23.71 10/21/2021 2:17 PM MEDICAL DIRECTOR OF HOSPICE Plan of Treatment Health Maintenance Due Date [...] TISSUE EXAM Routine 06/05/2024 1:30 PM CDT COST CONTROL SPECIALIST THIN PREP PAP SCREEN IMAGED Routine 06/05/2024 1:30 PM CDT HPV THIN PREP Routine 06/05/2024 1:30 PM CDT from Last 3 Months Results * LAB TRACKING EVENT (06/05/2024 1:30 PM CDT) Only the most recent of2 resultswithin the time period is included. Other (Other) Client Collect / Unknown 06/05/2024 1:30 PM CDT 06/06/2024 3:36 PM CDT January Eugenia PACHECO LAB BILL ONLY [facility] [address] [place] [address], * (ABNORMAL) COST CONTROL SPECIALIST THIN PREP PAP SCREEN IMAGED (06/05/2024 1:30 PM CDT) Case Report Gynecologic Cytology Report ? Case: [id number] ? Authorizing Provider: ??Martha Bello PA-C ?Collected: ? 06/05/2024 1330 ? Ordering Location: ? [facility] ?Received: ?06/07/2024 0900 ? First Screen: ?Luz Holloway ? Pathologist: ? Eddy Rahman Jr., ? MD ? Specimen: ?COST CONTROL SPECIALIST ThinPrep Vial Screening, Cervical ? 06/15/2024 4:26 PM CDT [facility] ENTRAL LABORATORY INTERPRETATION/ RESULT ATYPICAL SQUAMOUS CELLS OF UNDETERMINED SIGNIFICANCE (ASCUS)(A) (none) 06/15/2024 4:26 PM CDT [facility] IMEN ADEQUACY Satisfactory for evaluation Endocervical component present 06/15/2024 4:26 PM CDT [facility] HPV REQUEST HPV and PAP 06/15/2024 4:26 PM CDT [facility] Last Pap Date 12/22/2022 06/15/2024 4:26 PM CDT [facility] Last Pap Result NIL 4:26 PM CDT [facility] Abnormal Pap or [place] Bx in last 5 years No 06/15/2024 4:26 PM CDT [facility] Menstrual Status Postmenopausal 06/15/2024 4:26 PM CDT [facility] [place] Bx Done Today No 06/15/2024 4:26 PM CDT [facility] Additional Information 06/15/2024 4:26 PM CDT [facility] Comment: Interpreted at [facility] - [address] [place] [address] [address] Automated Review Successful 06/15/2024 4:26 PM CDT [facility] Comment:Specimen processed s uccessfully by automated complaint evaluation supervisor device, ThinPrep Imaging System, [employer] ANCILLARY TESTING COST CONTROL SPECIALIST HPV Ordered, Please see separate report 06/15/2024 4:26 PM CDT [facility] Note The pap test is [...] and malignant lesions. 06/15/2024 4:26 PM CDT [facility] Other (Cervical) 06/05/2024 1:30 PM CDT 06/07/2024 9:00 AM CDT January David Bello PA-C PATHOLOGY/CYTOLOGY [facility] [address] [place] [address], * PATH TISSUE EXAM (06/05/2024 1:30 PM CDT) Case Report Pathology Report ?Case: [id number] ? Authorizing Provider: ??Martha Bello PA-C ?Collected: ? 06/05/2024 1330 ? Ordering Location: ? [facility] ?Received: ?06/06/2024 1644 ? Pathologist: ? Elia Foreman MD ? Specimen: ?Endometrial Biopsy ? 06/08/2024 10:32 AM CDT [facility] Final Diagnosis A) ENDOMETRIUM, BIOPSY: 1. Scant atrophic endometrium 2. Fragments of benign endocervical mucosa 3. Negative for hyperplasia, atypia, and malignancy in this sample 06/08/2024 10:32 AM CDT [facility] [employer] [facility] EN[facility]ORAT[facility] Clinical Information Abnormal vaginal bleeding 06/08/2024 10:32 AM CDT [facility] ENTRAL LABORATORY Gross Description A) Received in formalin, labeled with the patient's name and date of , is a 2.1 x 0.9 x 0.3 cm aggregate of pink-gonzalez mucosa admixed with clotted blood and mucous. The specimen is entirely submitted in 1 cassette. SJM 06/06/2024 06/08/2024 10:32 AM CDT [facility] Microscopic Description The final diagnosis is based on microscopic examination of appropriate sections of all specimens. 06/08/2024 10:32 AM CDT [facility] Additional Information Interpreted at [facility] - [address] [facility] [address] [facility] [address] [address] 06/08/2024 10:32 AM CDT [facility] Other (Endometrial Biopsy) 06/05/2024 1:30 PM CDT 06/06/2024 4:44 PM CDT January David Bello PA-C PATHOLOGY/CYTOLOGY Performing Organization Address [facility] de Phone Number [facility] [address] [place] [address], * HPV HIGH RISK (06/05/2024 1:30 PM CDT) TYPE 16 Negative Negative 06/08/2024 11:08 AM CDT [facility] LAB[facility]AT[facility] TYPE 18 Negative Negative 06/08/2024 11:08 AM CDT [facility] OTHER HIGH RISK TYPES Negative Negative 06/08/2024 11:08 AM CDT [facility] TRA LABORATORY Other (Cervical) 06/05/2024 1:30 PM CDT 06/07/2024 9:00 AM CDT Narrative [facility] - 06/08/2024 11:08 AM CDT HPV types 16, 18, 31, 33, 35, 39, 45, 51, 52, 56, 58, 59, 66 and 68 DNA were undetectable or below the pre-set threshold. Methodology: [employer] 4800 HPV Test Martha David Bello PA-C MICROBIOLOGY [facility] [address] [place] [address], from Last 3 Months Care Teams Packaging Inspector Relationship Specialty Start Date End Date None, Dr Quezada PCP - General 10/26/06
== END 2024-07-12 16:28 | disposition home or self-care (01) ==
LOC: NFLDREF 16:28
PROVIDERS: PCP Family Medicine; Visit Provider Registered Nurse
DX: E78.5 Hyperlipidemia, unspecified (principal)
CPT/HCPCS: 80048

== ENCOUNTER 2024-07-25 16:45 | Inpatient (IN) | payer BC, SELFPAY ==
[2024-07-25] VITALS (30 sets, daily range): BP systolic 111–150; BP diastolic 76–125; PULSE 74–89; RESP 10–20; TEMP 36.2–36.8; O2SAT 90–100; BMI 24.0
--- OUTSIDE RECORDS SUMMARY | 2024-07-25 09:12 | XMS_ITS | Clinical Summary ---
Author Organization [employer] [facility] Address [place], [place] [address] Care Team Providers Care Sulfur Chloride Operator Name Role Phone None, Primary Care Provider [...] Department Care Team Description 06/06/2024 Lab Requisition [facility] [phone] Martha Bello PA-C 06/06/2024 Lab Requisition [facility] [phone] Martha Bello PA-C from Last 3 Months [...] 170.2 cm (5' 7) 10/21/2021 2:17 PM BOX BUILDER Body Mass Index 23.71 10/21/2021 2:17 PM BOX BUILDER Plan of Treatment Health Maintenance Due Date [...] 08/29/2021, Additional history exists COVID-19 vaccine series ( season) 2024 07/23/2022, 09/22/2021, 01/30/2021, Additional history [...] TISSUE EXAM Routine 06/05/2024 1:30 PM CDT ELECTRIC FREIGHT CAR OPERATOR THIN PREP PAP SCREEN IMAGED Routine 06/05/2024 1:30 PM CDT HPV HIGH RISK Routine 06/05/2024 1:30 PM CDT from Last 3 Months Results * LAB TRACKING EVENT (06/05/2024 1:30 PM CDT) Only the most recent of2 resultswithin the time period is included. Other (Other) Client Collect / Unknown 06/05/2024 1:30 PM CDT 06/06/2024 3:36 PM CDT January Eugenia PACHECO LAB BILL ONLY [facility] [address] [place] [address], * (ABNORMAL) ELECTRIC FREIGHT CAR OPERATOR THIN PREP PAP SCREEN IMAGED (06/05/2024 1:30 PM CDT) Case Report Gynecologic Cytology Report ? Case: [id number] ? Authorizing Provider: ??Martha Bello PA-C ?Collected: ? 06/05/2024 1330 ? Ordering Location: ? [facility] ?Received: ?06/07/2024 0900 ? First Screen: ?Luz Holloway ? Pathologist: ? Eddy Rahman Jr., ? MD ? Specimen: ?ELECTRIC FREIGHT CAR OPERATOR ThinPrep Vial Screening, Cervical ? 06/15/2024 4:26 PM CDT [facility]-C ENTRAL LABORATORY INTERPRETATION/ RESULT ATYPICAL SQUAMOUS CELLS OF UNDETERMINED SIGNIFICANCE (ASCUS)(A) (none) 06/15/2024 4:26 PM CDT [facility] ENTRAL LABORATORY IMEN ADEQUACY Satisfactory for evaluation Endocervical component present 06/15/2024 4:26 PM CDT [facility] HPV REQUEST HPV and PAP 06/15/2024 4:26 PM CDT [facility] Last Pap Date 12/22/2022 06/15/2024 4:26 PM CDT [facility] Last Pap Result NIL 4:26 PM CDT [facility] Abnormal Pap or [place] Bx in last 5 years No 06/15/2024 4:26 PM CDT [facility] Menstrual Status Postmenopausal 06/15/2024 4:26 PM CDT [facility] [place] Bx Done Today No 06/15/2024 4:26 PM CDT [facility] Additional Information 06/15/2024 4:26 PM CDT [facility] Comment: Interpreted at [facility] - [address] [place] [address] [address] Automated Review Successful 06/15/2024 4:26 PM CDT [facility] Comment:Specimen processed s uccessfully by automated customer relations advisor device, ThinPrep Imaging System, [employer] ANCILLARY TESTING ELECTRIC FREIGHT CAR OPERATOR HPV Ordered, Please see separate report 06/15/2024 [...] AM CDT January David Bello PA-C PATHOLOGY/CYTOLOGY [facility] [address] [place] [address], * PATH TISSUE EXAM (06/05/2024 1:30 PM CDT) Case Report Pathology Report ?Case: [id number] ? Authorizing Provider: ??Martha Bello PA-C ?Collected: ? 06/05/2024 1330 ? Ordering Location: ? [facility] ?Received: ?06/06/2024 1644 ? Pathologist: ? Elia Foreman MD ? Specimen: ?Endometrial Biopsy ? 06/08/2024 10:32 AM CDT [facility] EN[facility]AL LABORATORY Final Diagnosis A) ENDOMETRIUM, BIOPSY: 1. Scant atrophic endometrium 2. Fragments of benign endocervical mucosa 3. Negative for hyperplasia, atypia, and malignancy in this sample 06/08/2024 10:32 AM CDT [facility] [email or web address] [facility] ENTRAL LABORATORY Clinical Information Abnormal vaginal bleeding 06/08/2024 10:32 AM CDT [facility] ENTRAL LABORATORY Gross Description A) Received in formalin, labeled with the patient's name and date of , is a 2.1 x 0.9 x 0.3 cm aggregate of pink-gonzalez mucosa admixed with clotted blood and mucous. The specimen is entirely submitted in 1 cassette. SJM 06/06/2024 06/08/2024 10:32 AM CDT [facility] EN[facility]ATORY Microscopic Description The final diagnosis is based on microscopic examination of appropriate sections of all specimens. 06/08/2024 10:32 AM CDT [facility] Additional Information Interpreted at [facility] - [address] [facility] [address] [facility] [address], [place] [address] 06/08/2024 10:32 AM CDT [facility] Other (Endometrial Biopsy) 06/05/2024 1:30 PM CDT 06/06/2024 4:44 PM CDT January David Bello PA-C PATHOLOGY/CYTOLOGY Performing Organization Address [facility] de Phone Number [facility] [address] [place] [address], * HPV HIGH RISK (06/05/2024 1:30 PM CDT) TYPE 16 Negative Negative 06/08/2024 11:08 AM CDT [facility] TRAL LABORATORY TYPE 18 Negative Negative 06/08/2024 11:08 AM CDT [facility] TR[facility] LAB[facility] OTHER HIGH RISK TYPES Negative Negative 06/08/2024 11:08 AM CDT [facility] TRA LABORATORY Other (Cervical) 06/05/2024 1:30 PM CDT 06/07/2024 9:00 AM CDT Narrative [facility] - 06/08/2024 11:08 AM CDT HPV types 16, 18, 31, 33, 35, 39, 45, 51, 52, 56, 58, 59, 66 and 68 DNA were undetectable or below the pre-set threshold. Methodology: [employer] [place] 4800 HPV Test Martha David Bello PA-C MICROBIOLOGY [facility] LAB[facility]ORY [address] [place] [address], from Last 3 Months Care Teams Sulfur Chloride Operator Relationship Specialty Start Date End Date None, Dr Quezada PCP - General 10/26/06
--- OUTSIDE RECORDS SUMMARY | 2024-07-25 09:12 | XMS_ITS | Clinical Summary ---
Author Organization [facility] Address [address] [place] [address] Care Team Providers Care Administrative Judge Name Role Phone Unassigned, Provider Primary Care [...] transition of care or referral. [email or web address] Allergies Active Allergy Reactions Criticality Noted Date [...] TOTAL AND HDL Routine 09/01/2001 1:25 PM VAULT KEEPER PAP TEST, ROUTINE Routine 09/01/2001 10: 10 AM VAULT KEEPER from Last 3 Months or Most Recently Relevant to Health Maintenance Results * CHOLESTEROL, TOTAL AND HDL (09/01/2001 1:25 PM VAULT KEEPER) Cholesterol 148 <200 mg/dl [facility] HDL 58 >35 mg/dl [facility] 09/01/2001 1:25 PM VAULT KEEPER 09/01/2001 1:26 PM VAULT KEEPER Rosa Harrison MD LAB_1 Performing Organization Address [facility] de Phone Number [facility] [address] [phone] * PAP SMEAR, ROUTINE (09/01/2001 10:10 AM VAULT KEEPER) Pap Smear, Routine See Separate Report Performed at [facility] 09/01/2001 10:1 0 AM VAULT KEEPER 09/07/2001 10:53 AM VAULT KEEPER Rosa Harrison MD LAB_1 Performing Organization Address [facility] de Phone Number [facility] [address] [address] from Last 3 Months or Most Recently Relevant to Health Maintenance Care Teams Administrative Judge Relationship Specialty Start Date End Date Unassigned, Provider [address] [place] [address] PCP - General 08/22/04
--- OUTSIDE RECORDS SUMMARY | 2024-07-25 09:12 | XMS_ITS | Clinical Summary ---
Author Organization [place] Address [address] [place] [address]. [place] [address] Care Team Providers Care Backbreaker Name Role Phone Xenia Clements PA-C Primary Care Provider [phone] Jerri Moss MD Unavailable [phone] Allergies Active Allergy Reactions Criticality Noted Date [...] 1 0 10/06/2005 Active NYSTATIN (MOUTH-THROAT) SUSP 691287 U/ML MTIndications:Candid iasis of vulva and vagina [...] Advance Directives For more information, please contact: [phone] * No Code Status (Latest Code Status on File) Date Activated Date Inactivated Comments 10/04/2003 9:28 AM 10/04/2003 10:28 AM Care Teams Backbreaker Relationship Specialty Start Date End Date Xenia Clements PA-C [facility] [address] [address] PCP - General 05/13/02 Jerri Moss MD [facility] [address] [place] [address] Family Practice 12/20/18
--- OUTSIDE RECORDS SUMMARY | 2024-07-25 09:12 | XMS_ITS | Referral Summary ---
Author Organization [place] Address [address] [place] [address]. [place] [address] Care Team Providers Care Insurance Administrative Assistant Name Role Phone Xenia Clements PA-C Primary Care Provider [phone] Jerri Moss MD Unavailable Allergies Active Allergy [...] 1 0 10/06/2005 Active NYSTATIN (MOUTH-THROAT) SUSP 936504 U/ML MTIndications:Candid iasis of vulva and vagina [...] Advance Directives For more information, please contact: [phone] * No Code Status (Latest Code Status on File) Date Activated Date Inactivated Comments 10/04/2003 9:28 AM 10/04/2003 10:28 AM Care Teams Insurance Administrative Assistant Relationship Specialty Start Date End Date Xenia Clements PA-C [facility] [address] [address] PCP - General 05/13/02 Jerri Moss MD [facility] [address] [place] [address] Family Practice 12/20/18
--- OUTSIDE RECORDS SUMMARY | 2024-07-25 09:12 | XMS_ITS | Encounter Summary ---
Author Organization [place] Address [address] [place] [address]. [place] [address] Care Team Providers Care Special Procedures Technologist Name Role Phone Xenia Clements PA-C Primary Care Provider [phone] Jerri Moss MD Unavailable [phone] Alcon Gallegos MD Unavailable [phone] Reason for Visit * Reason Onset Date Comments Orders 06/12/2019 MRI order Encounter Details Date Type Department Care Team ([facility] st Contact Info) Description 06/12/[address] [place] [address] Fely Luque MD [address] [place] [address] Orders (MRI order) Social History [...] JoshuaCaren sánchez - 06/12/2019 4:05 PM CDT [facility] MRI order faxed to [facility] at [phone] Karen Collins CMA Phone Message May a detailed message be left on voicemail: yes Reason for Call: Other: Susy calling to request that the MRI order be sent to [facility] in [place] as we are not in network per her insurance. Their fax number is [phone]. Please call her once the order has been faxed so she can schedule her appointment Action Taken: Message routed to: [facility] Neurology documented in this encounter Plan of Treatment Not on file documented as of this encounter Visit Diagnoses Not on filedocumented in this encounter Additional Health Concerns Assessment Noted Time PHQ-9 Depression Total Score: 11 024 9:04 AM CDT documented as of this encounter Care Teams Special Procedures Technologist Relationship Specialty Start Date End Date Xenia Clements PA-C [facility] [address] [address] PCP - General 05/13/02 Jerri Moss MD [facility] [address] [place] [address] Family Practice 12/20/18 Alcon Gallegos MD [address] [place] [address] [address] [place] [address] Neurology 12/20/18 02/21/20 documented as of this encounter
--- OUTSIDE RECORDS SUMMARY | 2024-07-25 09:12 | XMS_ITS | Encounter Summary ---
Author Organization [place] Address [address] [place] [address]. [place] [address] Care Team Providers Care Household Cook Name Role Phone Xenia Clements PA-C Primary Care Provider [phone]- [phone] Jerri Moss MD Unavailable [phone] Alcon Gallegos MD Unavailable [phone] Encounter Details Date Type Department Care Team (Late st Contact Info) Description 06/17/2019 [facility] Medical Advice [facility] Neurology [address] [place] [address] [address] [place] [address] Fely Luque MD [id number] [place] [address] Social History Tobacco Use Types [...] documented as of this encounter Care Teams Household Cook Relationship Specialty Start Date End Date Xenia Clements PA-C [facility] [address] [facility] [address] [place] [address] PCP - General 05/13/02 Jerri Moss MD [facility] [address] [place] [address] Family Practice 12/20/18 Alcon Gallegos MD [address] [place] [address] [address] [place], [place] [address] Neurology 12/20/18 02/21/20 documented as of this encounter
--- OUTSIDE RECORDS SUMMARY | 2024-07-25 09:13 | XMS_ITS | Continuity of Care Document ---
Author Organization [facility] Address [address] [place] [address] Phone Care Team Providers Care Political Science Chair Name Role Phone Stepan Mckeon MD Unavailable [...] Mod 2020 X Ray Exam Entire SPI 4/5 VW Office consultation, moderate X-ray exam of total spine Advance Directives Directive Yes / No Effective Date File Name No Information Encounters Encounter Description Practice Location Reason(s) For Visit Diagnoses Date Provider Providers Copied on Encounter Office/Outpa tient Visit,Est, Mod [facility], [address], [place], [place], [id number], [place] tel:[phone] [facility] Other spondylosis, thoracic region Linda Ying. [facility], [address], [address], [place], [place], [id number], [place]. tel:[phone] Referring Provider: Yakov King, [facility] [address], [place], [address] . tel:[phone] Office/Outpa tient Visit,New, Mod [facility], [address], [place], [place], [id number], [place] tel:[phone] [facility] [place] Other kyphosis, thoracic regionAdolescen t idiopathic scoliosis, site unspecified Christine Nagy. [facility], [address] [place] [address] [address], [place], [place], [id number], [place]. tel:[phone] Referring Provider: Yakov King, [facility] [address] [place] [address] [address], [place], [address] . tel:[phone] Office consultation , moderate Z [facility], [address] [facility] [address], [place], [address], [place] tel:[phone] [facility] No Information No Information Referring Provider: Romy Gordillo [facility] [address] [place] [address]. tel:[phone] Family History Family Member Type Diagnosis Age At Onset No Information Payers Payer name Insurance type Covered democrat ID Orville gerber(alfredito) [facility] [address] [facility] [id number] Social History Type Description Quantity Date Captured [...]
[2024-07-25 09:57] LABS: Hemoglobin* 12.6 gm/dL (12.0-16.0)
[2024-07-25] MEDS: LACTATED RINGERS 1000 ML 1,000 ML 100 ML IV ×2 (10:00→12:05)
[2024-07-25] MEDS: SODIUM CHLORIDE 0.9 % (FLUSH) 10 ML SYRINGE IVF (10:10)
--- NOTE | 2024-07-25 10:12 | W.PM.H&PU ---
History & Physical Update History & Physical Update H&P Reviewed and patient assessed: No changes noted
--- NOTE | 2024-07-25 10:13 | P.PCN_ITS ---
Procedure Note Time Seen by Provider: 13:38 Date Seen: 07/25/24 Date of procedure: 07/25/24 Will [facility] bill your pro fee for this procedure?: Yes Procedure: REFERRING PHSICIAN/PROVIDER: Jerri Moss MD PREOPERATIVE DIAGNOSIS: symptomatic uterine fibroids POSTOPERATIVE DIAGNOSIS: same NAME OF PROCEDURE: Total Abdominal Hysterectomy, Bilateral salpingo oophorectomy, diagnostic cystoscopy SURGEON: Jane Herrera MD FILLING AND STAPLING MACHINE OPERATOR: Mahnaz Gallo MD SECOND TUBE TRAILER FILLER: FUNMILAYO Olson ANESTHESIA: General endotracheal, local. COMPLICATIONS: None ESTIMATED BLOOD LOSS: 100 mL IV FLUID: 2000 mL URINE OUTPUT: 500 mL clear urine at the end of the procedure DRAINS: Bruner to gravity. SPECIMEN: Uterus, bilateral fallopian tubes and ovaries. FINDINGS: On laparotomy: Large pedunculated fibroid measuring approximately 6 x 12 cm. Additional 3 cm lower uterine segment, anterior fibroid. Normal fallopian tubes and ovaries bilaterally. PROCEDURE: After obtaining informed consent, the patient was taken to the operating room where general anesthesia was obtained without difficulty. A bruner catheter was placed. She was prepared and draped in the normal sterile fashion in the dorsal lithotomy position. A Pfannenstiel skin incision was made with a scalpel. This incision was carried down to the underlying layer of fascia with combination of the sharp dissection with the scalpel and bipolar cautery using the Bovie. The fascia was incised in the midline with the scalpel and the incision extended laterally with Wiseman scissors. The superior and inferior aspects of the fascial incision were grasped with Moises clamps and the underlying rectus muscles dissected off sharply. The rectus muscles were in the midline. The underlying peritoneum was identified and entered bluntly. The peritoneal incision was extended superiorly and inferiorly with good visualization of the bladder. The patient was placed in some mild Trendelenburg positioning. The intestines were packed cephalad using a large moistened laparotomy sponge. The Twin O retractor was placed in the incision. This provided excellent visualization of the pelvis. The pelvis was inspected with the findings noted above. Both ureters were identified along their courses within the pelvic sidewall. The right right round ligament was doubly clamped with Moises clamps, transected, and suture ligated with 0 Vicryl. The anterior leaf of the broad ligament was opened to the midline from the right side. The bladder flap was created with a combination of sharp dissection with Metzenbaum scissors and bipolar cautery using the Bovie. Posterior leaf of the broad ligament was opened using bipolar cautery. The right infundibulopelvic ligament was identified and mesosalpinx was cauterized to make a small opening. The right IP ligament was then doubly Stephany clamped, divided and doubly suture ligated 1st with a free tie of 0 Vicryl then a suture doing a fore and aft stitch. The 2nd Stephany clamp was then suture ligated with 0 Vicryl suture. Attention was turned to the left side and the round ligament was divided, anterior and posterior leafs of the broad ligament divided in a similar manner. Then the left IP ligament was doubly Stephany clamped, divided and suture ligated in a similar manner. The uterine vessels were skeletonized on the right side. The vessels were clamped across with a Stephany and a straight clamp, transected, and suture ligated. Excellent hemostasis was obtained. Attention was then turned to the left side. The left uterine vessels were skeletonized and then clamped across with Stephany clamps, transected, and suture ligated. Excellent hemostasis was noted. The remaining cardinal and uterosacral ligament attachments on both sides were clamped with straight Stephany clamps adjacent to the lower uterine segment and cervix, transected and suture ligated with 0 Vicryl. Excellent hemostasis was obtained. Two Stephany clamps were placed across the vaginal cuff angles. The uterus with attached cervix was then transected and passed off the field. The vaginal cuff angles were fixed with Stephany stitches of 0 Vicryl. The intervening vaginal cuff was closed with [id number] sutures of 0 Vicryl. The abdomen and pelvis were then copiously irrigated with warm sterile water. Small bleeding vessels were isolated with DeBakey clamps and cauterized for hemostasis. One area on the right was for clamped with a right angle and suture ligated with 0 Vicryl. Nina was placed over raw tissue edges for additional hemostasis. All laparotomy sponges and instruments were then removed. Attention was then turned performing a diagnostic cystoscopy. The Bruner catheter was removed and the cystoscope advanced into the bladder. IV fluorescein was given to the patient in order to visualize the ureteral orifices more clearly. Urine jets were noted from both ureteral orifices. The cystoscope was then removed and the Bruner catheter replaced. The subfascial tissues were carefully inspected and hemostasis assured. The fascia was reapproximated in a running fashion with a looped 0 Maxon suture. The subcutaneous tissues were copiously irrigated and hemostasis assured. The subcutaneous adipose layer did not require reapproximation. The skin was closed in a subcuticular fashion with 4-0 Monocryl. Exofin skin adhesive and a dressing were applied. The patient tolerated the procedure well. Sponge, lap, needle, instrument counts were reported as correct x2. The patient was taken to recovery room awake and in stable condition. Preop antibiotics: Ancef 2g IV Postop pain control: Toradal 30 mg IV The uterus and cervix were weighed at the conclusion of the procedure, weight was 621 gm.
[2024-07-25] MEDS: CEFAZOLIN 2 GM INJ IVP ×2 (10:30→11:55)
--- NOTE | 2024-07-25 11:29 | PM.ORPRC ---
Procedure Note Date of procedure: 07/25/24 Procedure: PREOPERATIVE DIAGNOSIS: Right ankle retained hardware POSTOPERATIVE DIAGNOSIS: Right ankle retained hardware NAME OF OPERATION: Hardware removal deep SURGEON: Bhavesh Carlos MD TANK CARPENTER: ELVA Flores ANESTHESIA: General ESTIMATED BLOOD LOSS: 0 mL COMPLICATIONS: None SPECIMENS: None DRAINS: None PREOPERATIVE ANTIBIOTICS: Ancef 1 gram INDICATIONS: The patient is a 54-year-old who sustained a right ankle fracture. This was previously treated with intramedullary nailing and syndesmotic fixation. Her fracture has healed uneventfully. She is now having some painful symptoms that are potentially related to the retained implants. Therefore, hardware removal was offered. The risks, benefits and expected outcomes were discussed in detail. These included but were not limited to: Infection, bleeding, injury to blood vessel or nerve, venous thromboembolism. All questions were answered to their satisfaction. Use of an economic research assistant was necessary throughout the case for patient positioning and safety, soft tissue retraction and closure. PROCEDURE: The patient is placed supine on the operating room table. General anesthesia was administered. The lower extremity was prepped and draped in the usual sterile fashion. The previously placed incision over the lateral aspect of the fibula was utilized. Subcutaneous dissection was sharply taken to the lateral to medial distal interlocking screw. This was exposed and was removed intact. Attention was then turned to the previously placed anterior incision. This was utilized. Subcutaneous dissection was taken with tenotomy scissors to the anterior posterior distal interlocking screw. This was fully exposed and removed intact. Attention was then turned to the tight rope. The lateral button was fully exposed. The suture was divided and the lateral button was removed intact. Attention was then turned to the medial side the medial button was palpable. A new stab incision was placed over the button subcutaneous dissection was sharply taken to the button which was fully exposed. It was removed intact. The suture for the tight rope was pulled out the lateral side. We then opened the distal incision over the tip of the fibula subcutaneous dissection was taken with tenotomy scissors to the distal aspect of the nail. The end cap was removed intact. We placed the screwdriver and retracted the talons. We then placed the cannulated extraction device over the screwdriver engaging the threads on nail. We tapped the nail out intact. The wounds were irrigated with normal saline. The economic research assistant closed the skin with a 3-0 Vicryl in a subcuticular fashion. Glue was used to seal the skin. The economic research assistant placed a dry dressing and short leg Jarek Baker splint. Sponge and needle counts were correct x 2. The patient tolerated the procedure well. There were no apparent complications. At this point, the gynecology service took over her care. PLAN: The patient will be discharged to home. They may weightbear as tolerates. Activity will be unrestricted. Follow-up in 1-2 weeks for wound check with three views of her ankle, prior to being seen.
--- NOTE | 2024-07-25 12:02 | P.NB_ITS ---
Nerve Block Nerve Block Time Seen by Provider: 10:42 Date Seen: 07/25/24 Type of block requested by surgeon for post-operative analgesia: TAP Side: bilateral Time out performed: Yes Verification of patient name: Yes Verification of date of : Yes Site marking: site marked Name of person performing procedure: Holden Continuous monitoring Was continuous monitoring of O2 sat, B/P, line director, recorded every 15 minutes?: Yes Procedure Checklist: sterile prep, needles and gloves Ultrasound guided. Images saved: Yes Medications given in 5ml increments after negative aspiration: Marcaine %: 0.25 mL: 30 Needle gauge: 20 and Exparel mL: 10 Patient tolerated procedure well: Yes Additional comments: Needle noted between internal oblique and transversus abdominus. Local spread visualized Block Charges Block Charge (with Pro Fee): TAP Bilateral Use of Ultrasound Machine for Block: Yes- US Guidance/pain block
--- NOTE | 2024-07-25 12:02 | W.ANESCHARGE ---
Anesthesia Charges Start Date/Time Anesthesia Start Date: 07/25/24 Anesthesia Start Time: 10:26 Stop Date/Time Anesthesia Stop Date: 07/25/24 Anesthesia Stop Time: 13:56
--- NOTE | 2024-07-25 12:17 | SUR.OPER ---
TIME OUT FOR HYSTERECTOMY AT 1157.
[2024-07-25] MEDS: VASOPRESSIN 20 UNIT/ML INJ INJECTION (12:27)
[2024-07-25] MEDS: 0.9 % SODIUM CHLORIDE 50 ml INJECTION (12:29)
--- NOTE | 2024-07-25 12:46 | SUR.OPER ---
HARDWARE/SCREWS CLEANED IN AUTOCLAVE & GIVEN TO MONY IN A SEALED CONTAINER
--- NOTE | 2024-07-25 13:27 | SUR.OPER ---
UTERUS WEIGHT 621G
--- NOTE | 2024-07-25 13:59 | W.ANESCHARGE ---
Anesthesia Charges Start Date/Time Anesthesia Start Date: 07/25/24 Anesthesia Start Time: 10:26 Stop Date/Time Anesthesia Stop Date: 07/25/24 Anesthesia Stop Time: 13:56
[2024-07-25] MEDS: fentaNYL 100 MCG/2 ML inj 50 MCG IVP ×2 (14:08→14:15)
[2024-07-25] MEDS: KETOROLAC 30 MG/ML inj IVP ×2 (14:18→19:32)
[2024-07-25] MEDS: HYDROmorphone 0.5 mg/0.5 ml inj IVP ×6 (14:21→21:57)
[2024-07-25] MEDS: ACETAMINOPHEN INJ 1,000 MG/100 ML VIAL 400 MG IVPB (15:48)
[2024-07-25] MEDS: LACTATED RINGERS 1000 ML 1,000 ML 125 ML IV (16:21)
[2024-07-25] MEDS: OXYCODONE 5 MG TABLET PO ×2 (18:23→22:31)
--- NOTE | 2024-07-25 18:56 | PC.NURSE ---
Pt arrived to the floor from surgery at 1545. She has had elevated pain in her abdomen area since arriving. She rates pain at an 8/10 and reports it as a ?pulling, aching? pain. PRN Dilaudid given x1 at 1620 and she was transitioned to PO oxycodone at 1820 once she was able to tolerate PO intake. She?s been SL in left hand. Acosta is patent & draining clear, yellow-green urine. Pt received max dose of IV pain meds in OR in addition to Ketamine & Versed so bed alarms should be in place as well as close O2 monitoring. Pt has maintained O2 > 90% on RA. She was drowsy & lightly sedated on arrival but has become more alert & conversational. has been at bedside, attentive to patient?s needs. She tolerated a gluten-free dinner without c/o nausea. Lap incision dressing is C/DI and RLE cast is intact. Pt is due to sit up & ambulate this evening yet once pain is more manageable. Ice pack didn?t provide much relief so we switched to an Aqua K pad which seems to help.?
[2024-07-25] MEDS: DOCUSATE SODIUM 100 MG CAPSULE PO (20:13)
[2024-07-25] MEDS: BENZOCAINE/MENTHOL 1 EACH LOZENGE MUCOUS MEM (20:14)
[2024-07-25] MEDS: ZOLPIDEM 5 MG TABLET PO (22:31)
[2024-07-26] MEDS: OXYCODONE 5 MG TABLET PO ×6 (02:44→20:54)
[2024-07-26] MEDS: KETOROLAC 30 MG/ML inj IVP (02:45)
[2024-07-26 02:56] VITALS: BP 122/81; PULSE 76; RESP 16; TEMP 36.8; O2SAT 96
--- NOTE | 2024-07-26 06:45 | PC.NURSE ---
End of shift report [id number]: Alert and oriented x 4. Pain to deep pelvic area reported at 7-06/10, writer technical publications utilized PRN medications as well as repositioning, ice and heat and patient reported slow decrease in pain. At 0230 patient reporting that pain was acceptable at 02/08, writer technical publications provided education on continued pain management as well as non-pharmacological interventions for pain. Patient SBA with transfers and ambulation, did ambulate in hallway prior to HS and tolerated activity well. At 0545 bruner catheter discontinued, catheter tip intact. Patient continent and able to void 100cc within 30 minutes of catheter removed. Abdomen tender, dressing intact. Tolerating food and fluids well, denies any nausea. Denies any pain to right ankle, celia wrap intact. CMS intact to RLE. Tolerating weight bearing activities.
[2024-07-26 07:00] VITALS: BP 118/78; PULSE 86; RESP 16; TEMP 36.6; O2SAT 99
[2024-07-26 07:04] LABS: Hemoglobin* 11.5 gm/dL (12.0-16.0)
--- NOTE | 2024-07-26 07:30 | P.GYNPN_ITS ---
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 Large exophytic fibroid (6.5cm), and 2 smaller fibroids (2018) . 12.5 cm (2022) Status: Chronic Plan Susy is a 54yo seen on POD1 from NIMA/BSO and diagnostic cystoscopy for symptomat ic fibroid uterus with Dr. Herrera. Postoperatively, she initially had difficulty with pain control but this is much improved overnight. She is meeting all appropriate postoperative milestones. Vital signs reviewed and are within normal limits, adequate urine output. Postoperative hemoglobin 11.5 today. Benign physical exam. We discussed anticipated plan today will be to continue to work on pain management. We initially had planned to discontinue Toradol and switched ibuprofen, but patient notes she was previously recommended to avoid oral NSAIDs by her GI. As such, we discussed utilizing Tylenol scheduled in oxycodone as needed for pain control. Certainly we can revisit this if her pain control is not optimal throughout the day. Encouraged gentle increased p.o. intake throu ghout the day and ambulation. She has not yet had return of bowel function. Anticipate dismissal to home tomorrow morning. 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 Postoperative course was notable for immediate difficulty with pain control, improved with time. Susy is feeling much better this morning, relative to last night. She notes that she does have persistent abdominal and pelvic pain that is exacerbated with movement. In general, she describes this as more of a throbbing or aching but a may be sharp. Pain control has included Tylenol, Toradol and oxycodone overnight. We had planned to revise the Toradol to ibuprofen this morning, but patient notes she was previously advised to not take ibuprofen by her previous GI provider given a history of colitis. As such, plan to transition to p.o. Tylenol scheduled and oxycodone as needed. Future doses of IV Toradol could be considered, but patient understands our goal is to try to simulate will pain control will be like at home. Susy is tolerating p.o. intake in small volumes, yogurt and Jell-O last night. She has not yet order breakfast, but notes she has some return of appetite. Denies nausea/vomiting. Acosta catheter has been removed, endorses sensation of complete emptying of the bladder. She is not passing flatus or bowel movement. She notes she did not use preoperative bowel regimen as she was not notified that this was required. In the days leading up to her surgery she did have a flare of her celiac disease, where she was taking Lomotil. Scant vaginal bleeding has been noted. Patient is ambulating without difficulty, in the halls once into the bathroom or chair repeatedly. Review of systems otherwise negative. 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 Seated upright in chair. Psych: Appropriate mood and affect. Abdomen: Soft and nondistended. Tender to palpation in the bilateral lower quadrants, consistent with postoperative state. No rebound or guarding. Surgical dressing in place, clean and dry. 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
[2024-07-26] MEDS: DULOXETINE 30 MG CAPSULE DR 120 MG PO (08:19)
[2024-07-26] MEDS: FEXOFENADINE 180 MG TABLET PO (08:20)
[2024-07-26] MEDS: ACETAMINOPHEN 325 MG TABLET 650 MG PO ×4 (08:21→20:55)
[2024-07-26] MEDS: SENNOSIDES/DOCUSATE TABLET 1 TAB PO (09:24)
[2024-07-26 11:00] VITALS: BP 102/64; PULSE 86; RESP 16; TEMP 36.6; O2SAT 98
[2024-07-26 14:55] VITALS: BP 117/75; PULSE 96; RESP 18; TEMP 37.2; O2SAT 96
[2024-07-26] MEDS: SIMETHICONE 80 MG TAB.CHEW 160 MG PO (16:22)
--- NOTE | 2024-07-26 18:13 | PC.NURSE ---
[id number] End of Shift: A&O x 4. Pain to deep pelvic area reported throughout the shift,?credit underwriter utilized PRN medications, repositioning, ice, and heat. Screen Printing Stencil Preparer continuing to monitor pain levels. Pt indep, ambulated in hallway and in room well.?Pt denies dizziness, chest pain, and SOB during ambulation. Patient continent of the bladder. Abdomen tender, dressing CDI. Tolerating food and fluids well, denies any nausea. Denies any pain to right ankle, celia wrap CDI. Pt appears resting with spouse at bedside, call light within reach. ?
[2024-07-26 19:00] VITALS: BP 129/87; PULSE 91; RESP 18; TEMP 37.2; O2SAT 99
[2024-07-26] MEDS: DOCUSATE SODIUM 100 MG CAPSULE PO (20:55)
[2024-07-26] MEDS: ZOLPIDEM 5 MG TABLET PO (22:40)
[2024-07-26 22:52] VITALS: BP 128/82; PULSE 90; RESP 16; O2SAT 100
[2024-07-27] MEDS: OXYCODONE 5 MG TABLET PO ×3 (01:43→09:27)
[2024-07-27 02:32] VITALS: BP 127/81; PULSE 88; RESP 16; O2SAT 95
--- NOTE | 2024-07-27 05:27 | PC.NURSE ---
[id number] Pt slept well in recliner, pain somewhat controlled with PO pain medications, Ice to abdomen. tolerating PO intake, ambulating frequently in room/halls. denies N/V. dressing to lower abd C/D/I.
[2024-07-27] MEDS: ACETAMINOPHEN 325 MG TABLET 650 MG PO ×2 (05:49→09:28)
[2024-07-27 07:00] VITALS: BP 120/83; PULSE 95; RESP 16; TEMP 37; O2SAT 93
--- NOTE | 2024-07-27 09:16 | PM.GYNDS1 ---
DS: Providers Provider Time Seen by Provider: 08:40 Date Seen: 07/27/24 Date of admission: 07/25/24 16:45 Primary care physician: Jerri Moss MD Admitting Clinician: Jane Herrera MD Attending Physician on discharge: Jane Herrera MD Date of Discharge: 07/27/24 DS: Diagnosis Discharge Diagnosis (1) Status post abdominal hysterectomy and salpingo-oophorectomy: Status: Acute (2) Fibroid uterus: Status: Chronic Problem details: Fibroid is palpable through abdominal wall. Large exophytic fibroid (6.5cm), and 2 smaller fibroids (2017) . 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 Indication for surgery: Uterine fibroids. Intraoperative findings were notable for large, pedunculated fibroid off the fundus of the uterus measuring 6.5 x 12.5 cm at least 1 other intramural anterior fibroid measuring approximately 3 x 3 cm, normal tubes and ovaries. She had an uncomplicated surgery. Postoperative course has been uneventful. Vitals have been stable. She has remained afebrile. Today, on postoperative day 2, she reports the pain is moderately well controlled. She has been able to ambulate Without difficulty. She is tolerating regular diet. She has not passed flatus. Acosta catheter has been removed, and she is voiding without difficulty. 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 Vital signs: Included in her electronic medical record. Heart: Regular rate and rhythm without gallop, rub or murmur. Chest: Clear to auscultation bilaterally. Abdomen: Soft, nontender, nondistended with normal bowel sounds throughout. No CVA or flank tenderness. Incision: Clean, dry and intact with sutures and skin adhesive gel. Extremities: No pain or edema. ORGAN TUNER ELECTRONIC - DS: Data Procedures Procedures: Procedures Operation Date: 07/25/24 10:25 Actual Procedure Side Surgeon p Total Abdominal Hysterectomy, Bilateral Salpingectomy-Oophorectomy, Diagnostic Cystoscopy Bilateral Jane Herrera MD s Right Ankle Screw Removal Right Bhavesh Carlos MD Discharge Plan Discharge Disposition: Home, Self-Care Date of Admission: 07/25/24 16:45 Attending Provider on Discharge: Jane Herrera Primary Care Provider: Jerri Moss Condition: Stable Anticipated Discharge Date/Time: 07/27/24 12:00 Discharge Medications: New sennosides-docusate sodium [Stool Softener-Laxative] 8.6-50 mg Tablet 1 tab PO BID PRN (Reason: constipation) Qty: 100 0RF docusate sodium 100 mg Capsule 100 mg PO BID PRN (Reason: Constipation) Qty: 100 0RF oxycodone 5 mg Tablet 5 mg PO 3XD PRN (Reason: Moderate Pain) Qty: 21 0RF Continued multivitamin [Multiple Vitamins] Tablet 1 tab PO QDAY calcium carbonate 600 mg calcium (1,500 mg) tablet 600 mg PO BID valacyclovir 1 gram tablet 2,000 mg PO BID PRN (Reason: cold sores) Qty: 20 1RF Rx Instructions: Take at onset on cold sore flare, 2 tabs po now and again 12 hrs later. tizanidine 4 mg tablet 4 mg PO Q6H PRN (Reason: muscle spasm) epinephrine 0.3 mg/0.3 mL auto-injector 0.3 mg IM ONCE PRN (Reason: anaphylaxis) Qty: 2 0RF duloxetine 60 mg capsule,delayed release(DR/EC) 120 mg PO QDAY Qty: 180 1RF fluticasone propionate [Flonase Allergy Relief] 50 mcg/actuation spray,suspension 2 spray intranasal QDAY Qty: 10 12RF Rx Instructions: administer into each nostril fexofenadine [Allergy Relief (fexofenadine)] 180 mg tablet 180 mg PO QDAY Qty: 90 3RF estradiol 0.05 mg/24 hr patch semiweekly 1 patch transdermal 2XW Qty: 24 3RF Rx Instructions: apply 1 patch for 3 days alternating with 1 patch for 4 days each week for 3 wks per 4-wk cycle lisdexamfetamine [Vyvanse] 30 mg capsule 30 mg PO QAM Qty: 30 0RF Rx Instructions: needs to be seen in clinic 12/2024 Discharge Orders: Discharge Order (Routine); Ordered 07/27/24 Ordered By: Jane Herrera Patient Education: Laxative, Stimulant (By mouth), Laxative, Stool Softeners (By mouth), Oxycodone, Rapid Release (By mouth), Hysterectomy (DC) Additional Instructions: ACTIVITY RESTRICTIONS: Nothing vaginally for 6 weeks: no tampons/intercourse No driving while taking narcotic pain medication during the day. 1-2 weeks. Lifting restriction: Maximum of 20 pounds for 2-3 weeks. High impact or core exercises: 3 weeks. Submerge the incisions in water (bath/pool/marina): 2 weeks. Off of work/school for a minimum of 4 weeks NO RESTRICTIONS for: Walking Going up/down stairs Showering Being the passenger in a motor vehicle SYMPTOMS TO REPORT TO YOUR DOCTOR: Bleeding that is red, like a moderate period Passing clots larger than the size of a golf ball Pain not relieved by prescribed medication Fever above 100.4 degrees Fahrenheit A foul vaginal odor Decrease in urination or painful, frequent urinating Chest pain Shortness of breath Tenderness or pain with redness and/swelling in the calf(s) of your leg Follow-up Appointments: 1. [facility] 2-3 weeks for an incision check. 2. A 6 week postop visit to verify that the vaginal cuff is well-healed. Activity Level: Other Discharge Diet: Regular Follow Up Appointments: Jerri Moss MD [Primary Care Provider] - Bhavesh Carlos MD [Staff Physician] - 08/07/24 2:30 pm Jane Herrera MD [Staff Physician] - Forms: [facility] Info Instructions
[2024-07-27] MEDS: DULOXETINE 30 MG CAPSULE DR 120 MG PO (09:26)
[2024-07-27] MEDS: FEXOFENADINE 180 MG TABLET PO (09:26)
[2024-07-27] MEDS: SENNOSIDES/DOCUSATE TABLET 1 TAB PO (09:26)
--- NOTE | 2024-07-27 13:57 | PC.NURSE ---
Pt discharged @ 1302 via wheelchair, accompanied with spouse, back to home. Reviewed and signed all discharge papers at 1050. Pt requested to nap before leaving. Pt was AxOx4 on discharge with pain well managed.
== END 2024-07-27 13:02 | disposition home or self-care (01) | DRG 519 ==
LOC: OR 16:45 → MEDSURG 16:45
PROVIDERS: Orthopaedic Surgery; Admitting Provider Obstetrics & Gynecology; PCP Family Medicine; Visit Provider Obstetrics & Gynecology
PROC: 0UT94ZZ Resection of Uterus, Percutaneous Endoscopic Approach (ICD-10-PCS; CPT 52000; principal; 2024-07-25 10:15)
PROC: 0SPF04Z Removal of Internal Fixation Device from Right Ankle Joint, Open Approach (ICD-10-PCS; CPT 20680; 2024-07-25 10:15)
DX: D25.9 Leiomyoma of uterus, unspecified (principal); T84.84XA Pain due to internal orthopedic prosthetic devices, implants and grafts, initial encounter; G89.18 Other acute postprocedural pain; F98.8 Other specified behavioral and emotional disorders with onset usually occurring in childhood and adolescence
CPT/HCPCS: 00840; 36415; 64488; 76942; 85018; 86850; 86900; 86901; 88309; A9270; C9290; J0131; J0665; J0690; J1100; J1170; J1885; J2250; J2371; J2405; J2704; J3010; J3490; J7120